=== PATIENT | female | born 1965 | race Hispanic/Latino ===

== ENCOUNTER 2023-06-13 09:23 | Emergency (ER) | payer OTHER ==
--- OUTSIDE RECORDS SUMMARY | 2023-06-13 09:28 | XMS REPORT | Continuity of Care Document ---
:1965 Author Organization [facility] t Address [address] [place] [address] Care Team Providers Name Role Phone Wendy Jones Attending Clinician Unavailable DORI CLEMENS Attending Clinician Unavailable Deepika HANNON, Mayela Grewal Attending Clinician Unavailable Malika HANNON, Lexi Attending Clinician Unavailable Gladis Newby Attending Clinician Payers Payer Name Policy Type Policy Number Effective Date Expiration Date Bucky primitivo FORMERLY [facility] [id number] 2015 HEALTH CHOICE 00:00:00 [place] [address] [id number] 2017 [facility] t Health Choice 00:00:00 - [facility] [place] [id number] 2017 [facility] t Health Choice 00:00:00 - [facility] [place] [id number] 2017 Common [facility] t Health Choice 00:00:[address] - [facility] [place] [id number] 2017 [facility] t [facility] Problems Condition Condition Condition Status Onset Resolution Last Treating Co mments Source Name Details Category Date Date Treatment Clinician Date Metabolic Metabolic Disease Active 2015-10 Uni vers syndrome syndrome 0-11 ity of 00:00: [place] 00 [facility] Branch ACC/AHA ACC/AHA Disease Active Univers stage A stage A 7 ity of heart heart 00:00: [place] failure failure 00 [facility] Dyslipidem Dyslipidem Disease Active U nivers ia ia 04-20 ity of 00:00: [place] 00 [facility] Atypical Atypical Disease Active Unive rs chest pain chest pain 04-20 it y of 00:00: [place] 00 [facility] Pyelonephr Pyelonephr Disease Active U nivers itis itis 2-08 ity of 00:00: [place] 00 [facility] [id number] Prediabete Problem Co mmon s [facility] Hyperglyce Hyperglyce Problem C ommon nazario nazario [facility] Acquired Acquired Problem Commo n hypothyroi hypothyroi Sp kenrick dism [facility] Anxiety Anxiety Problem Common [facility] Essential Benign Problem Common hypertensi essential Spi rit on HTN [facility] Incontinen Incontinen Problem C ommon ce ce [facility] Hyperlipid Hyperlipid Problem C ommon emia emia [facility] [id number] Vaginal Problem Commo n bleeding [facility] [id number] Controlled Problem Co mmon type 2 [facility] diabetes [facility] mellitus [facility] complicati Medica l on, Center without long-term current use of insulin [id number] Well adult Problem Co mmon exam [facility] [id number] History of Problem C ommon [id number] 2018 novel Spir it coronaviru [facility] s disease St (COVID-19[facility] [id number] Mixed Problem Common incontinen [facility] [id number] Type 2 Problem Common diabetes Spirit mellitus - [facility]I with 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 - CHI al menopause [facility] [id number] Viral Problem Common upper Spirit respirator - CHI y tract infection [facility] [id number] Gastroesop Problem Co mmon hageal Spirit reflux - CHI disease, esophagiti [facility] s presence Medica l not Center specified [id number] Non-season Problem Com mon al Spirit allergic - CHI rhinitis, unspecifie [facility] d [facility] Allergies, Adverse Reactions, Alerts Allergy Allergy Status Severity Reaction(s) Onset Inactive Treating Comm ents Source Name Type Date Date Clinician tramadol DA Active [place] [facility] 9-18 [facility] [place] PAPER DA Active [place] [facility] TAPE 18 [facility] [place] Tramadol Drug Active Other - See Pt stated Univers Intolera comments 11-23 she get ity o f nce 00:00: [facility] and [place] 00 diaphoret Medical ic. Branch TRAMADOL DRUG Active Med Other-Cmnt Univ ers INGREDI 11-23 ity of 00:00: [place] 00 Medical Branch Tramadol Tramadol Active Unknown Commo n Spirit - CH[facility] Social History Social Habit Start Date Stop Date Quantity Comments Source Exposure to Not sure [facility] SARS-CoV-2 (event) Medica l Branch History of Tobacco Common [facility] - [facility] Use [facility] Sex Assigned At Common Sp kenrick - [facility] Cigarettes smoked 2019-09-10 2019-09-10 [facility] current (pack per 00:00:00 00:00:00 Medical Branch day) - Reported Tobacco use and 2019-09-10 2019-09-10 Never used [facility] exposure 00:00:00 00:00:00 Medical Branch Smoking Status Start Date Stop Date Source Never Smoker [facility] - [facility] Former smoker 2019-09-10 00:00:00 2019-09-10 00:00:00 [facility] Medical Branch Medications Ordered Filled Start Stop Current Ordering Indication Dosage Frequency Signature Comments Components Source Medication Medication Date Date Medication? Clinician (SIG) Name Name ALPRAZolam ALPRAZolam 2021-10 No ALPRAZolam 0.25 MG 0.25 MG 2-16 0.25 MG 00:00: 00 ALPRAZolam ALPRAZolam 2021-10 No ALPRAZolam 0.25 MG 0.25 MG 2-16 0.25 MG 00:00: 00 Tradjenta 5 Tradjenta 5 2021-10 No 1{table QD Tradjenta MG MG 2-09 t} 5 MG 00:00: 00 Tradjenta 5 Tradjenta 5 2021-10 No 1{table QD Tradjenta MG MG 209 t} 5 MG 00:00: 00 Trulicity Trulicity 2021-10 No Trulicity 0.75mg/0.5m 0.75mg/0.5m 0-10 0.75mg/0.5 l l 00:00: ml 00 Trulicity Trulicity 2021-10 No Trulicity 0.75mg/0.5m 0.75mg/0.5m 0-10 0.75mg/0.5 l l 00:00: ml 00 Trulicity Trulicity 2021-10 No Trulicity 0.75mg/0.5m 0.75mg/0.5m 0-10 0.75mg/0.5 l l 00:00: ml 00 Glimepiride Glimepiride 2021-0 No 1{table Glimepirid 2 MG 2 MG 9-28 t} e 2 MG 00:00: 00 Glimepiride Glimepiride 2021-0 No 1{table Glimepirid 2 MG 2 MG 9-28 t} e 2 MG 00:00: 00 Glimepiride Glimepiride 2021-0 No 1{table Glimepirid 2 MG 2 MG 9-28 t} e 2 MG 00:00: 00 Glimepiride Glimepiride 2021-0 No 1{table Glimepirid 2 MG 2 MG 9-28 t} e 2 MG 00:00: 00 ALPRAZolam ALPRAZolam No ALPRAZolam 0.25 MG 0.25 MG -07 0.25 MG 00:00: 00 ALPRAZolam ALPRAZolam 2021-0 No ALPRAZolam 0.25 MG 0.25 MG 9-07 0.25 MG 00:00: 00 ALPRAZolam ALPRAZolam 2021-0 No ALPRAZolam 0.25 MG 0.25 MG 9-07 0.25 MG 00:00: 00 ALPRAZolam ALPRAZolam 2021-0 No ALPRAZolam 0.25 MG 0.25 MG 4-26 0.25 MG 00:00: 00 ALPRAZolam ALPRAZolam 2021-0 No ALPRAZolam 0.25 MG 0.25 MG 4-26 0.25 MG 00:00: 00 ALPRAZolam ALPRAZolam 2021-0 No ALPRAZolam 0.25 MG 0.25 MG 1-20 0.25 MG 00:00: 00 ALPRAZolam ALPRAZolam 2021-0 No ALPRAZolam 0.25 MG 0.25 MG 1-20 0.25 MG 00:00: 00 Xanax 0.25 Xanax 0.25 2020-1 No 1{table BID Xanax 0.25 MG MG 1-03 t} MG 00:00: 00 Xanax 0.25 Xanax 0.25 2020-1 No 1{table BID Xanax 0.25 MG MG 1-03 t} MG 00:00: 00 Xanax 0.25 Xanax 0.25 2020-1 No 1{table BID Xanax 0.25 MG MG 1-03 t} MG 00:00: 00 ALPRAZolam ALPRAZolam 2020-0 No ALPRAZolam 0.25 MG 0.25 MG 9-13 0.25 MG 00:00: 00 ALPRAZolam ALPRAZolam 2020-0 No ALPRAZolam 0.25 MG 0.25 MG 9-13 0.25 MG 00:00: 00 ALPRAZolam ALPRAZolam 2020-0 No ALPRAZolam 0.25 MG 0.25 MG 9-13 0.25 MG 00:00: 00 ALPRAZolam ALPRAZolam 2020-0 No ALPRAZolam 0.25 MG 0.25 MG 9-13 0.25 MG 00:00: 00 Glimepiride Glimepiride 2021-0 No 1{table Glimepirid 1 MG 1 MG 7-21 t} e 1 MG 00:00: 00 Glimepiride Glimepiride 2020-0 No 1{table Glimepirid 1 MG 1 MG 7-21 t} e 1 MG 00:00: 00 Glimepiride Glimepiride 2020-0 No 1{table Glimepirid 1 MG 1 MG 7-21 t} e 1 MG 00:00: 00 Glimepiride Glimepiride 2020-0 No 1{table Glimepirid 1 MG 1 MG 7-21 t} e 1 MG 00:00: 00 Glimepiride Glimepiride 2020-0 No 1{table Glimepirid 1 MG 1 MG 7-21 t} e 1 MG 00:00: 00 Albuterol Albuterol No 2{puffs Albuterol Sulfate HFA Sulfate HFA 6-03 } Sulfate 108 (90 108 (90 00:00: HFA 108 Base) Base) 00 (90 Base) MCG/ACT MCG/ACT MCG/ACT Albuterol Albuterol No 2{puffs Albuterol Sulfate HFA Sulfate HFA 6-03 } Sulfate 108 (90 108 (90 00:00: HFA 108 Base) Base) 00 (90 Base) MCG/ACT MCG/ACT MCG/ACT Albuterol Albuterol No 2{puffs Albuterol Sulfate HFA Sulfate HFA 6-03 } Sulfate 108 (90 108 (90 00:00: HFA 108 Base) Base) 00 (90 Base) MCG/ACT MCG/ACT MCG/ACT Albuterol Albuterol No 2{puffs Albuterol Sulfate HFA Sulfate HFA 6-03 } Sulfate 108 (90 108 (90 00:00: HFA 108 Base) Base) 00 (90 Base) MCG/ACT MCG/ACT MCG/ACT Albuterol Albuterol 2020- No 2{puffs Albuterol Sulfate HFA Sulfate HFA 6-03 } Sulfate 108 (90 108 (90 00:00: HFA 108 Base) Base) 00 (90 Base) MCG/ACT MCG/ACT MCG/ACT Albuterol Albuterol No 2{puffs Albuterol Sulfate HFA Sulfate HFA 6-03 } Sulfate 108 (90 108 (90 00:00: HFA 108 Base) Base) 00 (90 Base) MCG/ACT MCG/ACT MCG/ACT Albuterol Albuterol 0 No 2{puffs Albuterol Sulfate HFA Sulfate HFA 6-03 } Sulfate 108 (90 108 (90 00:00: HFA 108 Base) Base) 00 (90 Base) MCG/ACT MCG/ACT MCG/ACT Albuterol Albuterol No 2{puffs Albuterol Sulfate HFA Sulfate HFA 6-03 } Sulfate 108 (90 108 (90 00:00: HFA 108 Base) Base) 00 (90 Base) MCG/ACT MCG/ACT MCG/ACT Albuterol Albuterol No 2{puffs Albuterol Sulfate HFA Sulfate HFA 6-03 } Sulfate 108 (90 108 (90 00:00: HFA 108 Base) Base) 00 (90 Base) MCG/ACT MCG/ACT MCG/ACT Albuterol Albuterol 0 No 2{puffs Albuterol Sulfate HFA Sulfate HFA 6-03 } Sulfate 108 (90 108 (90 00:00: HFA 108 Base) Base) 00 (90 Base) MCG/ACT MCG/ACT MCG/ACT Albuterol Albuterol 0 No 2{puffs Albuterol Sulfate HFA Sulfate HFA 6-03 } Sulfate 108 (90 108 (90 00:00: HFA 108 Base) Base) 00 (90 Base) MCG/ACT MCG/ACT MCG/ACT Albuterol Albuterol 0 No 2{puffs Albuterol Sulfate HFA Sulfate HFA 6-03 } Sulfate 108 (90 108 (90 00:00: HFA 108 Base) Base) 00 (90 Base) MCG/ACT MCG/ACT MCG/ACT Albuterol Albuterol 0 No 2{puffs Albuterol Sulfate HFA Sulfate HFA 6-03 } Sulfate 108 (90 108 (90 00:00: HFA 108 Base) Base) 00 (90 Base) MCG/ACT MCG/ACT MCG/ACT naproxen 2019-10- No 500mg 500 mg, Univ ers (NAPROSYN) 0-27 10-27 Oral, ity of tablet 500 20:30: 19:32 ONCE, 1 Juan Luis as mg 00 :00 dose, [facility] 08/10/20 Branch at 1530, Routine naproxen 2019-10 Yes [id number] 500mg Take 1 U nivers (NAPROSYN) 0-27 tablet by ity of 500 mg 00:00: mouth 2 [place] tablet 00 (two) Medical times Branch daily with meals. ondansetron 2019-10 Yes [id number] 4mg Take 1 Univers (ZOFRAN 0-27 tablet by ity of ODT) 4 mg 00:00: mouth [place] disintegrat 00 every 8 Medic al ing tablet (eight) Branch hours as needed for Nausea and Vomiting (N/V). benzonatate 2019-10 Yes [id number] 200mg Take 1 Univers 200 mg 0-27 capsule by ity of capsule 00:00: mouth 3 [place] (three) Medical times Branch daily as needed for Cough for up to 20 doses. naproxen 2019-10 Yes [id number] 500mg Take 1 U nivers (NAPROSYN) 0-27 tablet by ity of 500 mg 00:00: mouth 2 [place] tablet 00 (two) Medical times Branch daily with meals. ondansetron 2019-10 Yes [id number] 4mg Take 1 Univers (ZOFRAN 0-27 tablet by ity of ODT) 4 mg 00:00: mouth [place] disintegrat 00 every 8 Medic al ing tablet (eight) Branch hours as needed for Nausea and Vomiting (N/V). benzonatate 2019-10 Yes [id number] 200mg Take 1 Univers 200 mg 0-27 capsule by ity of capsule 00:00: mouth 3 (three) Medical times Branch daily as needed for Cough for up to 20 doses. Nateglinide Nateglinide 2019-0 Yes Na Jones 1 tablet Common 7-17 before Spirit 00:00: meals - CHI 00 [facility] Glimepiride Glimepiride 2020-0 Yes Na Jones 1 tablet Common 6-08 with Spirit 00:00: breakfast - [facility] or [facility] meal of [facility] the day [place] ALPRAZolam 2018-10 Yes .25mg Take 0.25 U nivers (XANAX) 2 1-27 mg by ity of mg tablet 20:54: mouth 2 [place] (two) Medical times Branch daily. losartan 2018-10 Yes 50mg Take 50 mg Uni vers (COZAAR) 50 1-27 by mouth ity of mg tablet 20:54: daily. Medical Branch metFORMIN 2018-10 Yes 500mg Take 500 Uni vers 500 mg 1-27 mg by ity of tablet 20:54: mouth 2 (two) Medical times Branch daily with meals. levothyroxi 2018-10 Yes 50ug Take 50 Uni vers ne 50 mcg 1-27 mcg by ity of tablet 20:54: mouth [place] 00 every Medical morning. Branch estradiol 2018-10 Yes [id number] estradiol Univers 0.01 % (0.1 1-27 0.01% (0.1 it y of mg/gram) 20:54: mg/gram) vaginal vaginal Medical cream cream Branch Insert by vaginal route. oxybutynin 2018-10 Yes oxybutynin U nivers 10 mg 24 hr 1-27 chloride ity of tablet 20:54: ER 10 mg tablet,ext Medical ended Branch release 24 hr TAKE 1 TABLET BY MOUTH ONCE DAILY FOR 30 DAYS atorvastati 2018-10 Yes 20mg Take 20 mg Univers n 20 mg 1-27 by mouth ity of tablet 20:54: at [place] 00 bedtime. Medical Branch ALPRAZolam 2018-10 Yes .25mg Take 0.25 U nivers (XANAX) 2 1-27 mg by ity of mg tablet 20:54: mouth 2 (two) Medical times Branch daily. losartan 2018-10 Yes 50mg Take 50 mg Uni vers (COZAAR) 50 1-27 by mouth ity of mg tablet 20:54: daily. [place] Medical Branch metFORMIN 2018-10 Yes 500mg Take 500 Uni vers 500 mg 1-27 mg by ity of tablet 20:54: mouth 2 (two) Medical times Branch daily with meals. levothyroxi 2018-10 Yes 50ug Take 50 Uni vers ne 50 mcg 1-27 mcg by ity of tablet 20:54: mouth [place] 00 every Medical morning. Branch estradiol 2018-10 Yes [id number] estradiol Univers 0.01 % (0.1 1-27 0.01% (0.1 it y of mg/gram) 20:54: mg/gram) vaginal 00 vaginal Medical cream cream Branch Insert by vaginal route. oxybutynin 2018-10 Yes oxybutynin U nivers 10 mg 24 hr 1-27 chloride ity of tablet 20:54: ER 10 mg tablet,ext Medical ended Branch release 24 hr TAKE 1 TABLET BY MOUTH ONCE DAILY FOR 30 DAYS atorvastati 2018-10 Yes 20mg Take 20 mg Univers n 20 mg 27 by mouth ity of tablet 20:54: at [place] 00 bedtime. Medical Branch cetirizine 2018-10 Yes TAKE 1 Unive rs 10 mg 0-03 TABLET BY ity of tablet 00:00: MOUTH ONCE [place] 00 DAILY FOR Medical 90 DAYS Branch cetirizine 2018-10 Yes TAKE 1 Unive rs 10 mg 0-03 TABLET BY ity of tablet 00:00: MOUTH ONCE [place] 00 DAILY FOR Medical 90 DAYS Branch Flonase Flonase 2018-10 Yes Na Robert 2 spray in Common 0-03 each Spirit 00:00: nostril - [facility] Kenalog Kenalog 2018-10 No 40mg Common (Triamcinol (Triamcinol 0-03 S pirit one) one) 00:00: - CH[facility] Flonase 50 Flonase 50 2018-10 No 2{spray QD Flonase 50 MCG/ACT MCG/ACT 0-03 _in_eac MCG/ACT 00:00: h_nostr 00 il} Flonase 50 Flonase 50 2018-10 No 2{spray QD Flonase 50 MCG/ACT MCG/ACT 0-03 _in_eac MCG/ACT 00:00: h_nostr 00 il} Flonase 50 Flonase 50 2018-10 No 2{spray QD Flonase 50 MCG/ACT MCG/ACT 0-03 _in_eac MCG/ACT 00:00: h_nostr 00 il} Flonase 50 Flonase 50 2018-10 No 2{spray QD Flonase 50 MCG/ACT MCG/ACT 0-03 _in_eac MCG/ACT 00:00: h_nostr 00 il} Flonase 50 Flonase 50 2018-10 No 2{spray QD Flonase 50 MCG/ACT MCG/ACT 0-03 _in_eac MCG/ACT 00:00: h_nostr 00 il} Flonase 50 Flonase 50 2018-10 No 2{spray QD Flonase 50 MCG/ACT MCG/ACT 0-03 _in_eac MCG/ACT 00:00: h_nostr 00 il} Kenalog Kenalog 2019- No 40mg Common (Triamcinol (Triamcinol 0-03 S pirit one) one) 00:00: - CHI 00 [facility] Flonase 50 Flonase 50 2018- No 2{spray QD Flonase 50 MCG/ACT MCG/ACT 0-03 _in_eac MCG/ACT 00:00: h_nostr 00 il} Kenalog Kenalog 2018- No 40mg Common (Triamcinol (Triamcinol 0-03 S pirit one) one) 00:00: - CHI 00 [facility] Flonase 50 Flonase 50 2018- No 2{spray QD Flonase 50 MCG/ACT MCG/ACT 0-03 _in_eac MCG/ACT 00:00: h_nostr 00 il} Kenalog Kenalog 2018- No 40mg Common (Triamcinol (Triamcinol 0-03 S pirit one) one) 00:00: - [facility] Flonase 50 Flonase 50 2018- No 2{spray QD Flonase 50 MCG/ACT MCG/ACT 0-03 _in_eac MCG/ACT 00:00: h_nostr 00 il} Kenalog Kenalog 2018- No 40mg Common (Triamcinol (Triamcinol 0-03 S pirit one) one) 00:00: - CHI 00 [facility] Flonase 50 Flonase 50 2018- No 2{spray QD Flonase 50 MCG/ACT MCG/ACT 0-03 _in_eac MCG/ACT 00:00: h_nostr 00 il} Kenalog Kenalog 2018- No 40mg Common (Triamcinol (Triamcinol 0-03 S pirit one) one) 00:00: - CHI 00 [facility] Flonase 50 Flonase 50 2019- No 2{spray QD Flonase 50 MCG/ACT MCG/ACT 0-03 _in_eac MCG/ACT 00:00: h_nostr 00 il} Kenalog Kenalog 2019- No 40mg Common (Triamcinol (Triamcinol 0-03 S pirit one) one) 00:00: - CHI 00 [facility] Flonase 50 Flonase 50 2018-10 No 2{spray QD Flonase 50 MCG/ACT MCG/ACT 0-03 _in_eac MCG/ACT 00:00: h_nostr 00 il} Kenalog Kenalog 2018-10 No 40mg Common (Triamcinol (Triamcinol 0-03 S pirit one) one) 00:00: - CHI 00 [facility] Flonase 50 Flonase 50 2018-10 No 2{spray QD Flonase 50 MCG/ACT MCG/ACT 0-03 _in_eac MCG/ACT 00:00: h_nostr 00 il} Xanax Xanax Yes Na Jones 1 tablet Common [facility] Atorvastati Atorvastati Yes Na Jones 1 tablet Common n Calcium n Calcium Spiri [facility] Cozaar Cozaar Yes Na Jones 1 tablet Comm on [facility] Oxybutynin Oxybutynin Yes Na Jones 1 tablet Common Chloride ER Chloride ER S [facility] Levothyroxi Levothyroxi Yes Na Jones 1 tablet Common ne Sodium ne Sodium on an Spir it empty - CHI stomach in [facility] Metformin Metformin Yes Na Jones 1 tablet Common HCl HCl with a Spirit meal [facility] Atorvastati Atorvastati Yes Na Jones 1 tablet Common n Calcium n Calcium Spiri [facility] Levothyroxi Levothyroxi Yes Na Jones 1 tablet Common ne Sodium ne Sodium on an Spir it empty - CHI stomach in [facility] Losartan Losartan Yes Na Jones Take 1 Co mmon Potassium Potassium tablet by Spirit mouth once - CHI daily for days [facility] Levothyroxi Levothyroxi No QD Levothyrox ne Sodium ne Sodium ine Sodium 50 MCG 50 MCG 50 MCG Albuterol Albuterol No 2{puffs Albuterol Sulfate HFA Sulfate HFA } Sulfate 108 (90 108 (90 HFA 108 Base) Base) (90 Base) MCG/ACT MCG/ACT MCG/ACT Xanax 0.25 Xanax 0.25 No 1{table BID Xanax 0.25 MG MG t} MG Cozaar 50 Cozaar 50 No 1{table QD Cozaar 50 MG MG t} MG Albuterol Albuterol No 2{puffs Albuterol Sulfate HFA Sulfate HFA } Sulfate 108 (90 108 (90 HFA 108 Base) Base) (90 Base) MCG/ACT MCG/ACT MCG/ACT Oxybutynin Oxybutynin No 1{table QD Oxybutynin Chloride ER Chloride ER t} Chloride 10 MG 10 MG ER 10 MG Atorvastati Atorvastati No 1{table QD Atorvastat n Calcium n Calcium t} in Calcium 40 MG 40 MG 40 MG metFORMIN metFORMIN No metFORMIN HCl 500 MG HCl 500 MG HCl 500 MG Atorvastati Atorvastati No 1{table QD Atorvastat n Calcium n Calcium t} in Calcium 20 MG 20 MG 20 MG Levothyroxi Levothyroxi No QD Levothyrox ne Sodium ne Sodium ine Sodium 50 MCG 50 MCG 50 MCG Losartan Losartan No QD Losartan Potassium Potassium Potassium 50 MG 50 MG 50 MG Oxybutynin Oxybutynin No 1{table QD Oxybutynin Chloride ER Chloride ER t} Chloride 10 MG 10 MG ER 10 MG Albuterol Albuterol No 2{puffs Albuterol Sulfate HFA Sulfate HFA } Sulfate 108 (90 108 (90 HFA 108 Base) Base) (90 Base) MCG/ACT MCG/ACT MCG/ACT Atorvastati Atorvastati No 1{table QD Atorvastat n Calcium n Calcium t} in Calcium 40 MG 40 MG 40 MG metFORMIN metFORMIN No metFORMIN HCl 500 MG HCl 500 MG HCl 500 MG Cozaar 50 Cozaar 50 No 1{table QD Cozaar 50 MG MG t} MG Losartan Losartan No QD Losartan Potassium Potassium Potassium 50 MG 50 MG 50 MG Levothyroxi Levothyroxi No QD Levothyrox ne Sodium ne Sodium ine Sodium 50 MCG 50 MCG 50 MCG Atorvastati Atorvastati No 1{table QD Atorvastat n Calcium n Calcium t} in Calcium 20 MG 20 MG 20 MG Oxybutynin Oxybutynin No 1{table QD Oxybutynin Chloride ER Chloride ER t} Chloride 10 MG 10 MG ER 10 MG Albuterol Albuterol No 2{puffs Albuterol Sulfate HFA Sulfate HFA } Sulfate 108 (90 108 (90 HFA 108 Base) Base) (90 Base) MCG/ACT MCG/ACT MCG/ACT Atorvastati Atorvastati No 1{table QD Atorvastat n Calcium n Calcium t} in Calcium 40 MG 40 MG 40 MG metFORMIN metFORMIN No metFORMIN HCl 500 MG HCl 500 MG HCl 500 MG Cozaar 50 Cozaar 50 No 1{table QD Cozaar 50 MG MG t} MG Losartan Losartan No QD Losartan Potassium Potassium Potassium 50 MG 50 MG 50 MG Levothyroxi Levothyroxi No QD Levothyrox ne Sodium ne Sodium ine Sodium 50 MCG 50 MCG 50 MCG Atorvastati Atorvastati No 1{table QD Atorvastat n Calcium n Calcium t} in Calcium 20 MG 20 MG 20 MG Oxybutynin Oxybutynin No 1{table QD Oxybutynin Chloride ER Chloride ER t} Chloride 10 MG 10 MG ER 10 MG Albuterol Albuterol No 2{puffs Albuterol Sulfate HFA Sulfate HFA } Sulfate 108 (90 108 (90 HFA 108 Base) Base) (90 Base) MCG/ACT MCG/ACT MCG/ACT Atorvastati Atorvastati No 1{table QD Atorvastat n Calcium n Calcium t} in Calcium 40 MG 40 MG 40 MG metFORMIN metFORMIN No metFORMIN HCl 500 MG HCl 500 MG HCl 500 MG Cozaar 50 Cozaar 50 No 1{table QD Cozaar 50 MG MG t} MG Losartan Losartan No QD Losartan Potassium Potassium Potassium 50 MG 50 MG 50 MG Levothyroxi Levothyroxi No QD Levothyrox ne Sodium ne Sodium ine Sodium 50 MCG 50 MCG 50 MCG Atorvastati Atorvastati No 1{table QD Atorvastat n Calcium n Calcium t} in Calcium 20 MG 20 MG 20 MG Losartan Losartan No QD Losartan Potassium Potassium Potassium 50 MG 50 MG 50 MG Levothyroxi Levothyroxi No QD Levothyrox ne Sodium ne Sodium ine Sodium 50 MCG 50 MCG 50 MCG Cozaar 50 Cozaar 50 No 1{table QD Cozaar 50 MG MG t} MG Atorvastati Atorvastati No 1{table QD Atorvastat n Calcium n Calcium t} in Calcium 20 MG 20 MG 20 MG Albuterol Albuterol No 2{puffs Albuterol Sulfate HFA Sulfate HFA } Sulfate 108 (90 108 (90 HFA 108 Base) Base) (90 Base) MCG/ACT MCG/ACT MCG/ACT Atorvastati Atorvastati No Atorvastat n Calcium n Calcium in Calcium 40 MG 40 MG 40 MG Oxybutynin Oxybutynin No 1{table QD Oxybutynin Chloride ER Chloride ER t} Chloride 10 MG 10 MG ER 10 MG metFORMIN metFORMIN No BID metFORMIN HCl 500 MG HCl 500 MG HCl 500 MG Xanax 0.25 Xanax 0.25 No 1{table BID Xanax 0.25 MG MG t} MG Atorvastati Atorvastati No 1{table QD Atorvastat n Calcium n Calcium t} in Calcium 20 MG 20 MG 20 MG Albuterol Albuterol No 2{puffs Albuterol Sulfate HFA Sulfate HFA } Sulfate 108 (90 108 (90 HFA 108 Base) Base) (90 Base) MCG/ACT MCG/ACT MCG/ACT Glimepiride Glimepiride No 1{table Glimepirid 1 MG 1 MG t} e 1 MG metFORMIN metFORMIN No 1{table BID metFORMIN HCl 500 MG HCl 500 MG t_with_ HCl 500 MG a_meal} Levothyroxi Levothyroxi No QD Levothyrox ne Sodium ne Sodium ine Sodium 50 MCG 50 MCG 50 MCG Cozaar 50 Cozaar 50 No 1{table QD Cozaar 50 MG MG t} MG metFORMIN metFORMIN No BID metFORMIN HCl 500 MG HCl 500 MG HCl 500 MG Losartan Losartan No QD Losartan Potassium Potassium Potassium 50 MG 50 MG 50 MG Oxybutynin Oxybutynin No 1{table QD Oxybutynin Chloride ER Chloride ER t} Chloride 10 MG 10 MG ER 10 MG Atorvastati Atorvastati No Atorvastat n Calcium n Calcium in Calcium 40 MG 40 MG 40 MG metFORMIN metFORMIN No QD metFORMIN HCl ER 500 HCl ER 500 HCl ER 500 MG MG MG metFORMIN metFORMIN No 1{table BID metFORMIN HCl 500 MG HCl 500 MG t_with_ HCl 500 MG a_meal} Levothyroxi Levothyroxi No QD Levothyrox ne Sodium ne Sodium ine Sodium 50 MCG 50 MCG 50 MCG Glimepiride Glimepiride No 1{table Glimepirid 1 MG 1 MG t} e 1 MG Atorvastati Atorvastati No Atorvastat n Calcium n Calcium in Calcium 40 MG 40 MG 40 MG Oxybutynin Oxybutynin No 1{table QD Oxybutynin Chloride ER Chloride ER t} Chloride 10 MG 10 MG ER 10 MG Cozaar 50 Cozaar 50 No 1{table QD Cozaar 50 MG MG t} MG metFORMIN metFORMIN No BID metFORMIN HCl 500 MG HCl 500 MG HCl 500 MG Albuterol Albuterol No 2{puffs Albuterol Sulfate HFA Sulfate HFA } Sulfate 108 (90 108 (90 HFA 108 Base) Base) (90 Base) MCG/ACT MCG/ACT MCG/ACT Losartan Losartan No QD Losartan Potassium Potassium Potassium 50 MG 50 MG 50 MG Xanax 0.25 Xanax 0.25 No 1{table BID Xanax 0.25 MG MG t} MG Atorvastati Atorvastati No 1{table QD Atorvastat n Calcium n Calcium t} in Calcium 20 MG 20 MG 20 MG metFORMIN metFORMIN No QD metFORMIN HCl ER 500 HCl ER 500 HCl ER 500 MG MG MG metFORMIN metFORMIN No 1{table BID metFORMIN HCl 500 MG HCl 500 MG t_with_ HCl 500 MG a_meal} Levothyroxi Levothyroxi No QD Levothyrox ne Sodium ne Sodium ine Sodium 50 MCG 50 MCG 50 MCG Glimepiride Glimepiride No 1{table Glimepirid 1 MG 1 MG t} e 1 MG Atorvastati Atorvastati No Atorvastat n Calcium n Calcium in Calcium 40 MG 40 MG 40 MG Oxybutynin Oxybutynin No 1{table QD Oxybutynin Chloride ER Chloride ER t} Chloride 10 MG 10 MG ER 10 MG Cozaar 50 Cozaar 50 No 1{table QD Cozaar 50 MG MG t} MG metFORMIN metFORMIN No BID metFORMIN HCl 500 MG HCl 500 MG HCl 500 MG Albuterol Albuterol No 2{puffs Albuterol Sulfate HFA Sulfate HFA } Sulfate 108 (90 108 (90 HFA 108 Base) Base) (90 Base) MCG/ACT MCG/ACT MCG/ACT Losartan Losartan No QD Losartan Potassium Potassium Potassium 50 MG 50 MG 50 MG Xanax 0.25 Xanax 0.25 No 1{table BID Xanax 0.25 MG MG t} MG Atorvastati Atorvastati No 1{table QD Atorvastat n Calcium n Calcium t} in Calcium 20 MG 20 MG 20 MG metFORMIN metFORMIN No metFORMIN HCl ER 500 HCl ER 500 HCl ER 500 MG MG MG Atorvastati Atorvastati No 1{table QD Atorvastat n Calcium n Calcium t} in Calcium 20 MG 20 MG 20 MG metFORMIN metFORMIN No QD metFORMIN HCl ER 500 HCl ER 500 HCl ER 500 MG MG MG Xanax 0.25 Xanax 0.25 No 1{table BID Xanax 0.25 MG MG t} MG Atorvastati Atorvastati No Atorvastat n Calcium n Calcium in Calcium 40 MG 40 MG 40 MG Losartan Losartan No QD Losartan Potassium Potassium Potassium 50 MG 50 MG 50 MG Losartan Losartan No Losartan Potassium Potassium Potassium 50 MG 50 MG 50 MG metFORMIN metFORMIN No 1{table BID metFORMIN HCl 500 MG HCl 500 MG t_with_ HCl 500 MG a_meal} Cozaar 50 Cozaar 50 No 1{table QD Cozaar 50 MG MG t} MG metFORMIN metFORMIN No BID metFORMIN HCl 500 MG HCl 500 MG HCl 500 MG Levothyroxi Levothyroxi No Levothyrox ne Sodium ne Sodium ine Sodium 50 MCG 50 MCG 50 MCG Oxybutynin Oxybutynin No 1{table QD Oxybutynin Chloride ER Chloride ER t} Chloride 10 MG 10 MG ER 10 MG Levothyroxi Levothyroxi No QD Levothyrox ne Sodium ne Sodium ine Sodium 50 MCG 50 MCG 50 MCG Albuterol Albuterol No 2{puffs Albuterol Sulfate HFA Sulfate HFA } Sulfate 108 (90 108 (90 HFA 108 Base) Base) (90 Base) MCG/ACT MCG/ACT MCG/ACT Losartan Losartan No QD Losartan Potassium Potassium Potassium 50 MG 50 MG 50 MG Xanax 0.25 Xanax 0.25 No 1{table BID Xanax 0.25 MG MG t} MG Levothyroxi Levothyroxi No QD Levothyrox ne Sodium ne Sodium ine Sodium 50 MCG 50 MCG 50 MCG metFORMIN metFORMIN No metFORMIN HCl ER 500 HCl ER 500 HCl ER 500 MG MG MG Oxybutynin Oxybutynin No 1{table QD Oxybutynin Chloride ER Chloride ER t} Chloride 10 MG 10 MG ER 10 MG metFORMIN metFORMIN No QD metFORMIN HCl ER 500 HCl ER 500 HCl ER 500 MG MG MG metFORMIN metFORMIN No BID metFORMIN HCl 500 MG HCl 500 MG HCl 500 MG Losartan Losartan No Losartan Potassium Potassium Potassium 50 MG 50 MG 50 MG Atorvastati Atorvastati No 1{table QD Atorvastat n Calcium n Calcium t} in Calcium 20 MG 20 MG 20 MG metFORMIN metFORMIN No 1{table BID metFORMIN HCl 500 MG HCl 500 MG t_with_ HCl 500 MG a_meal} Albuterol Albuterol No 2{puffs Albuterol Sulfate HFA Sulfate HFA } Sulfate 108 (90 108 (90 HFA 108 Base) Base) (90 Base) MCG/ACT MCG/ACT MCG/ACT Levothyroxi Levothyroxi No Levothyrox ne Sodium ne Sodium ine Sodium 50 MCG 50 MCG 50 MCG Atorvastati Atorvastati No Atorvastat n Calcium n Calcium in Calcium 40 MG 40 MG 40 MG Cozaar 50 Cozaar 50 No 1{table QD Cozaar 50 MG MG t} MG metFORMIN metFORMIN No metFORMIN HCl ER 500 HCl ER 500 HCl ER 500 MG MG MG Losartan Losartan No Losartan Potassium Potassium Potassium 50 MG 50 MG 50 MG metFORMIN metFORMIN No BID metFORMIN HCl 500 MG HCl 500 MG HCl 500 MG Levothyroxi Levothyroxi No Levothyrox ne Sodium ne Sodium ine Sodium 50 MCG 50 MCG 50 MCG metFORMIN metFORMIN No 1{table BID metFORMIN HCl 500 MG HCl 500 MG t_with_ HCl 500 MG a_meal} Oxybutynin Oxybutynin No 1{table QD Oxybutynin Chloride ER Chloride ER t} Chloride 10 MG 10 MG ER 10 MG Atorvastati Atorvastati No Atorvastat n Calcium n Calcium in Calcium 40 MG 40 MG 40 MG Xanax 0.25 Xanax 0.25 No 1{table BID Xanax 0.25 MG MG t} MG Atorvastati Atorvastati No 1{table QD Atorvastat n Calcium n Calcium t} in Calcium 20 MG 20 MG 20 MG Cozaar 50 Cozaar 50 No 1{table QD Cozaar 50 MG MG t} MG Albuterol Albuterol No 2{puffs Albuterol Sulfate HFA Sulfate HFA } Sulfate 108 (90 108 (90 HFA 108 Base) Base) (90 Base) MCG/ACT MCG/ACT MCG/ACT metFORMIN metFORMIN No metFORMIN HCl ER 500 HCl ER 500 HCl ER 500 MG MG MG Oxybutynin Oxybutynin No 1{table QD Oxybutynin Chloride ER Chloride ER t} Chloride 10 MG 10 MG ER 10 MG metFORMIN metFORMIN No 1{table BID metFORMIN HCl 500 MG HCl 500 MG t_with_ HCl 500 MG a_meal} Levothyroxi Levothyroxi No QD Levothyrox ne Sodium ne Sodium ine Sodium 50 MCG 50 MCG 50 MCG metFORMIN metFORMIN No QD metFORMIN HCl ER 500 HCl ER 500 HCl ER 500 MG MG MG Albuterol Albuterol No 2{puffs Albuterol Sulfate HFA Sulfate HFA } Sulfate 108 (90 108 (90 HFA 108 Base) Base) (90 Base) MCG/ACT MCG/ACT MCG/ACT Levothyroxi Levothyroxi No Levothyrox ne Sodium ne Sodium ine Sodium 50 MCG 50 MCG 50 MCG Losartan Losartan No QD Losartan Potassium Potassium Potassium 50 MG 50 MG 50 MG Atorvastati Atorvastati No 1{table QD Atorvastat n Calcium n Calcium t} in Calcium 20 MG 20 MG 20 MG Losartan Losartan No Losartan Potassium Potassium Potassium 50 MG 50 MG 50 MG Glimepiride Glimepiride No 1{table Glimepirid 2 MG 2 MG t} e 2 MG Atorvastati Atorvastati No Atorvastat n Calcium n Calcium in Calcium 40 MG 40 MG 40 MG Trulicity Trulicity No Trulicity 1.5mg/0.5ml 1.5mg/0.5ml 1.5mg/0.5m l metFORMIN metFORMIN No BID metFORMIN HCl 500 MG HCl 500 MG HCl 500 MG Cozaar 50 Cozaar 50 No 1{table QD Cozaar 50 MG MG t} MG Xanax 0.25 Xanax 0.25 No 1{table BID Xanax 0.25 MG MG t} MG metFORMIN metFORMIN No metFORMIN HCl ER 500 HCl ER 500 HCl ER 500 MG MG MG Atorvastati Atorvastati No 1{table QD Atorvastat n Calcium n Calcium t} in Calcium 20 MG 20 MG 20 MG metFORMIN metFORMIN No QD metFORMIN HCl ER 500 HCl ER 500 HCl ER 500 MG MG MG Xanax 0.25 Xanax 0.25 No 1{table BID Xanax 0.25 MG MG t} MG Atorvastati Atorvastati No Atorvastat n Calcium n Calcium in Calcium 40 MG 40 MG 40 MG Losartan Losartan No QD Losartan Potassium Potassium Potassium 50 MG 50 MG 50 MG Losartan Losartan No Losartan Potassium Potassium Potassium 50 MG 50 MG 50 MG metFORMIN metFORMIN No 1{table BID metFORMIN HCl 500 MG HCl 500 MG t_with_ HCl 500 MG a_meal} Cozaar 50 Cozaar 50 No 1{table QD Cozaar 50 MG MG t} MG metFORMIN metFORMIN No BID metFORMIN HCl 500 MG HCl 500 MG HCl 500 MG Levothyroxi Levothyroxi No Levothyrox ne Sodium ne Sodium ine Sodium 50 MCG 50 MCG 50 MCG Oxybutynin Oxybutynin No 1{table QD Oxybutynin Chloride ER Chloride ER t} Chloride 10 MG 10 MG ER 10 MG Immunizations Ordered Immunization Filled Immunization Date Status Commen ts Source Name Name Afluria Afluria 2021-08-09 [facility] Afluria Afluria 2021-08-09 [facility]00 [facility] Afluria Afluria 2021-08-09 [facility]pleted [facility] 17:12:00 [facility] Afluria Afluria 2021-08-09 [facility]pleted [facility] 17:12:00 [facility] Afluria Afluria 2021-08-09 [facility]pleted [facility] 17:12:00 [facility] Afluria Afluria 2021-08-09 [facility]pleted [facility] 17:12:00 [facility] Afluria Afluria 2021-08-09 [facility]pleted [facility] 17:12:00 [facility] Afluria Afluria 2021-08-09 Completed [facility] 17:12:00 - [facility] Afluria Afluria 2021-08-09 Completed [facility] 17:12:00 [facility] Afluria Afluria 2021-08-09 Completed [facility] 17:12:00 [facility] Afluria Afluria 2021-08-09 Completed [facility] 17:12:00 [facility] Afluria Afluria 2021-08-09 [facility]pleted [facility] 17:12:00 [facility] Afluria Afluria 2021-08-09 [facility]pleted [facility] 17:12:00 [facility] Moderna COVID-19 Moderna COVID-19 2021-04-22 [facility] 15:11:00 [facility] Moderna COVID-19 Moderna COVID-19 2021-04-22 [facility] 15:11:00 [facility] Moderna COVID-19 Moderna COVID-19 2021-04-22 Com[facility] 15:11:00 - [facility] Moderna COVID-19 Moderna COVID-19 2021-04-22 Com[facility] 15:11:00 - [facility] Moderna COVID-19 Moderna COVID-19 2021-04-22 Com[facility] 15:11:00 [facility] Moderna COVID-19 Moderna COVID-19 2021-04-22 Com[facility] 15:11:00 - [facility] Moderna COVID-19 Moderna COVID-19 2021-04-22 Com[facility] 15:11:00 [facility] Moderna COVID-19 Moderna COVID-19 2021-04-22 Com[facility] 15:11:00 - [facility] Moderna COVID-19 Moderna COVID-19 2021-04-22 Com[facility] 15:11:00 - [facility] Moderna COVID-19 Moderna COVID-19 2021-04-22 Com[facility] 15:11:00 - [facility] Moderna COVID-19 Moderna COVID-19 2021-04-22 Com[facility] 15:11:00 [facility] Moderna COVID-19 Moderna COVID-19 2021-04-22 Com[facility] 15:11:00 [facility] Moderna COVID-19 Moderna COVID-19 2021-04-22 Com[facility] 15:11:00 - [facility] Afluria single dose Afluria single dose 2020-07-15 Completed [facility] 15:38:00 [facility] Afluria single dose Afluria single dose 2020-07-15 Completed [facility] 15:38:00 [facility] Afluria single dose Afluria single dose 2020-07-15 Completed [facility] 15:38:00 [facility] Afluria single dose Afluria single dose 2020-07-15 Completed [facility] 15:38:00 - [facility] Afluria single dose Afluria single dose 2020-07-15 Completed [facility] 15:38:00 [facility] Afluria single dose Afluria single dose 2020-07-15 Completed [facility] 15:38:00 [facility] Afluria single dose Afluria single dose 2020-07-15 Completed [facility] 15:38:00 - [facility] Afluria single dose Afluria single dose 2020-07-15 Completed [facility] 15:38:00 - [facility] Afluria single dose Afluria single dose 2020-07-15 Completed [facility] 15:38:00 [facility] Afluria single dose Afluria single dose 2020-07-15 Completed [facility] 15:38:00 - [facility] Afluria single dose Afluria single dose 2020-07-15 Completed [facility] 15:38:00 - [facility] Afluria single dose Afluria single dose 2020-07-15 Completed [facility] 15:38:00 - [facility] Afluria single dose Afluria single dose 2020-07-15 Completed [facility] 15:38:00 [facility] Kenalog Kenalog 2019-07-17 Completed [facility] (Triamcinolone) (Triamcinolone) 10:27:00 [facility] Shingrix Shingrix 2019-07-08 Completed [facility] 11:13:00 - [facility] Shingrix Shingrix 2019-07-08 Completed [facility] 11:13:00 - [facility] Shingrix Shingrix 2019-07-08 Completed [facility] 11:13:00 - [facility] Shingrix Shingrix 2019-07-08 Completed [facility] 11:13:00 [facility] Shingrix Shingrix 2019-07-08 Completed [facility] 11:13:00 - [facility] Shingrix Shingrix 2019-07-08 Completed [facility] 11:13:00 [facility] Shingrix Shingrix 2019-07-08 Completed [facility] 11:13:00 - [facility] Shingrix Shingrix 2019-07-08 Completed [facility] 11:13:00 - [facility] Shingrix Shingrix 2019-07-08 Completed [facility] 11:13:00 - [facility] Shingrix Shingrix 2019-07-08 Completed [facility] 11:13:00 - [facility] Shingrix Shingrix 2019-07-08 Completed [facility] 11:13:00 - [facility] Shingrix Shingrix 2019-07-08 Completed [facility] 11:13:00 - [facility] Shingrix Shingrix 2019-07-08 Completed [facility] 11:13:00 - [facility] Fluzone Fluzone 2019-07-07 Completed [facility] 11:12:00 - [facility] Fluzone Fluzone 2019-07-07 Completed [facility] 11:12:00 - [facility] Fluzone Fluzone 2019-07-07 Completed [facility] 11:12:00 - [facility] Fluzone Fluzone 2019-07-07 Completed [facility] 11:12:00 - [facility] Fluzone Fluzone 2019-07-07 Completed [facility] 11:12:00 - [facility] Fluzone Fluzone 2019-07-07 Completed [facility] 11:12:00 - [facility] Fluzone Fluzone 2019-07-07 Completed [facility] 11:12:00 - [facility] Fluzone Fluzone 2019-07-07 Completed [facility] 11:12:00 - [facility] Fluzone Fluzone 2019-07-07 Completed [facility] 11:12:00 - [facility] Fluzone Fluzone 2019-07-07 Completed [facility] 11:12:00 - [facility] Fluzone Fluzone 2019-07-07 Completed [facility] 11:12:00 - [facility] Fluzone Fluzone 2019-07-07 Completed [facility] 11:12:00 - [facility] Fluzone Fluzone 2019-07-07 Completed [facility] 11:12:00 - [facility] Vital Signs Vital Name Observation Time Observation Value Comments Source height 2022-07-12 11:00:00 66.00 [in_i] [facility] weight 2022-07-12 11:00:00 190 [facility] bmi 2022-07-12 11:00:00 30.66 kg/m2 [facility] height 2022-03-15 09:00:00 66.00 [in_i[facility] weight 2022-03-15 09:00:00 190 [lb_av[facility] bmi 2022-03-15 09:00:00 30.66 kg/m2 [facility] height 2021-12-14 11:20:00 66.00 [in_i] [facility] weight 2021-12-14 11:20:00 189 [lb_av] [facility] bmi 2021-12-14 11:20:00 30.5 kg/m2 [facility] height 2021-08-09 16:20:00 66.00 [in_i] [facility] weight 2021-08-09 16:20:00 189.2 [lb_av] [facility] temperature 2021-08-09 16:20:00 97.8 [degF] [facility] bmi 2021-08-09 16:20:00 30.53 kg/m2 [facility] oximetry 2021-08-09 16:20:00 99 % [facility] respiratory rate 2021-08-09 16:20:00 16 /min Comm on [facility] blood pressure 2021-08-09 16:20:00 122 mm[Hg] Common [facility] - systolic [facility] blood pressure 2021-08-09 16:20:00 80 mm[Hg] Common [facility] - diastolic [facility] Systolic blood 2020-08-10 18:45:00 137 mm[Hg] Univer sity of pressure [facility] Diastolic blood 2020-08-10 18:45:00 97 mm[Hg] Unive rsity of pressure [facility] Heart rate 2020-08-10 18:45:00 101 /min [facility] Body temperature 2020-08-10 18:45:00 38.22 Jacklyn [facility] Respiratory rate 2020-08-10 18:45:00 16 /min [facility] Body height 2020-08-10 18:45:00 167.6 cm [facility] Body weight 2020-08-10 18:45:00 83.462 kg [facility] BMI 2020-08-10 18:45:00 29.70 kg/m2 [facility] Oxygen saturation in 2020-08-10 18:45:00 97 /min [facility] Ar[facility]ial blood by [place] [employer] [facility] Pulse oximetry Branch Systolic blood 2020-08-10 18:45:00 137 mm[Hg] Univer sity of pressure [facility] Diastolic blood 2020-08-10 18:45:00 97 mm[Hg] Unive rsity of pressure [facility] Heart rate 2020-08-10 18:45:00 101 /min [facility] Body temperature 2020-08-10 18:45:00 38.22 Jacklyn [facility] Respiratory rate 2020-08-10 18:45:00 16 /min [facility] Body height 2020-08-10 18:45:00 167.6 cm [facility] Body weight 2020-08-10 18:45:00 83.462 kg [facility] BMI 2020-08-10 18:45:00 29.70 kg/m2 [facility] Oxygen saturation in 2020-08-10 18:45:00 97 /min [facility] Arterial blood by [employer] luis Pulse oximetry Branch Procedures Procedure Date / Time Performed Performing Clinician Sour e NOTICE OF PRIVACY 2020-08-10 18:36:45 [facility] CONSENT/REFUSAL FOR 2020-08-10 18:36:27 [facility] Name [facility] TREATMENT Encounters Start End Encounter Admission Attending Care Care Encounter Source Date/Time Date/Time Type Type Clinicians Facility Department ID 2022-10-04 Outpatient Jones, Na STLMLC STL[facility]C [id number] 2 Common 11:11:00 [facility] 2022-10-03 Outpatient Jones, Na STLMLC STLMLC [id number] 2 Common 09:29:00 [facility] 2022-10-02 Outpatient Jones, Na STLMLC STLMLC [id number] 2 Common 08:02:00 [facility] 2022-07-10 Outpatient Jones, Na STLMLC STLMLC [id number] 2 Common 15:09:00 [facility] 2022-06-14 Outpatient Jones, Na STLMLC STLMLC [id number] 2 Common 10:36:00 [facility] 2021-11-24 Outpatient Jones, Na STLMLC STLMLC [id number] 2 Common 13:54:01 [facility] 2021-11-09 Outpatient Jones, Na STLMLC STLMLC [id number] 2 Common 13:19:43 [id number] [facility] 2021-11-09 Outpatient Jones, Na STLMLC STLMLC [id number] 2 Common 13:09:06 [facility] 2021-11-09 Outpatient Jones, Na STLMLC STLMLC [id number] 2 Common 13:08:19 [id number] [facility] 2021-11-09 Outpatient Jones, Na STLMLC STLMLC [id number] 2 Common 12:47:23 [id number] [facility] 2021-11-09 Outpatient Jones, Na STLMLC STLMLC [id number] 2 Common 12:46:31 [id number] [facility] 2021-11-09 Outpatient Jones, Na STLMLC STLMLC [id number] 2 Common 12:26:51 [id number] [facility] 2021-11-09 Outpatient Jones, Na STLMLC STLMLC [id number] 2 Common 12:26:33 [id number] [facility] 2021-11-09 Outpatient Jones, Na STLMLC STLMLC [id number] 2 Common 12:08:49 [id number] [facility] 2021-11-09 Outpatient Jones, Na STLMLC STLMLC [id number] 2 Common 11:09:43 [id number] [facility] 2021-11-09 Outpatient Jones, Na STLMLC STLMLC [id number] 2 Common 11:09:27 [id number] [facility] 2021-11-09 Outpatient Jones, Na STLMLC STLMLC [id number] 2 Common 11:03:10 [id number] [facility] 2021-08-13 Emergency [facility] [id number] Univers 01:21:40 ity [facility] 2022-10-04 2022-10-04 OFFICE STLMLC STLMLC [id number] [facility] 00:00:00 00:00:00 VISIT EST Spir it PT LEVEL 3 [facility] 2022-10-03 2022-10-03 (TEL) STLMLC STLMLC [id number] [facility] 00:00:00 00:00:00 [facility] 2022-07-24 2022-07-24 (TEL) STLMLC STLMLC [id number] [facility] 00:00:00 00:00:00 [facility] 2022-07-12 2022-07-12 OFFICE STLMLC STLMLC [id number] [facility] 00:00:00 00:00:00 VISIT [facility] PT - CHI LEVEL 4 [facility] 2022-03-27 2022-03-27 (TEL) STLMLC STLMLC [id number] [facility] 00:00:00 00:00:00 [facility] 2022-03-15 2022-03-15 OFFICE STLMLC STLMLC [id number] [facility] 00:00:00 00:00:00 VISIT [facility] PT - CHI LEVEL 4 [facility] 2021-12-14 2021-12-14 OFFICE STLMLC STLMLC [id number] [facility] 00:00:00 00:00:00 VISIT [facility] PT - CHI LEVEL 4 [facility] 2021-11-10 2021-11-10 (TEL) STLMLC STLMLC [id number] [facility] 00:00:00 00:00:00 [facility] 2021-09-07 2021-09-07 (TEL) STLMLC STLMLC [id number] [facility] 00:00:00 00:00:00 [facility] 2021-09-02 2021-09-02 (TEL) STLMLC STLMLC [id number] [facility] 00:00:00 00:00:00 [facility] 2021-08-12 2021-08-12 (TEL) STLMLC STLMLC [id number] [facility] 00:00:00 00:00:00 [facility] 2021-08-09 2021-08-09 OFFICE STLMLC STLMLC [id number] [facility] 00:00:00 00:00:00 VISIT [facility] PT - CHI LEVEL 4 [facility] 2021-06-03 2021-06-03 Outpatient STLMLC STLMLC [id number] Common 00:00:00 00:00:00 [facility] 2021-05-04 2021-05-04 Outpatient STLMLC STLMLC [id number] Common 00:00:00 00:00:00 [facility] 2021-04-22 2021-04-22 Outpatient STLMLC STLMLC [id number] Common 00:00:00 00:00:00 [facility] 2021-03-15 2021-03-15 Outpatient STLMLC STLMLC [id number] Common 00:00:00 00:00:00 [facility] 2021-03-15 2021-03-15 Outpatient STLMLC STLMLC [id number] Common 00:00:00 00:00:00 [facility] 2021-01-24 2021-01-24 Outpatient STLMLC STLMLC [id number] Common 00:00:00 00:00:00 [facility] 2021-01-23 2021-01-23 Outpatient STLMLC STLMLC [id number] Common 00:00:00 00:00:00 [facility] 2021-01-14 2021-01-14 Outpatient STLMLC STLMLC [id number] Common 00:00:00 00:00:00 [facility] 2021-01-13 2021-01-13 Outpatient STLMLC STLMLC [id number] Common 00:00:00 00:00:00 [facility] 2020-11-22 2020-11-22 Outpatient STLMLC STLMLC [id number] Common 00:00:00 00:00:00 [facility] 2020-11-22 2020-11-22 Outpatient STLMLC STLMLC [id number] Common 00:00:00 00:00:00 [facility] 2020-11-22 2020-11-22 Outpatient STLMLC STLMLC [id number] Common 00:00:00 00:00:00 [facility] 2020-11-15 2020-11-15 Outpatient STLMLC STLMLC [id number] Common 00:00:00 00:00:00 [facility] 2020-09-14 2020-09-14 Outpatient STLMLC STLMLC [id number] Common 00:00:00 00:00:00 [facility] 2020-08-23 2020-08-23 Outpatient STLMLC STLMLC [id number] Common 00:00:00 00:00:00 [facility] 2020-08-13 2020-08-13 Outpatient R SARATH, [facility] [id number] Univers 13:00:00 13:00:00 SENDIL dianey [facility] 2020-08-12 2020-08-12 Letter NATY Poe [id number] Univers 00:00:00 00:00:00 (Out) Mayela MAO [id number] [facility] [id number] Juan Luis as [id number] [address] 2020-08-12 2020-08-12 Letter NATY Poe [id number] 00:00:00 00:00:00 (Out) Mayela MAO [id number] [facility] [id number] 2020-08-12 2020-08-12 Telephone NATY Daly [id number] 00:00:00 00:00:00 Lexi MAO [id number] [facility] [id number] 2020-08-10 2020-08-10 Emergency Gladis Sandy [facility] [id number] Univers 13:49:00 14:51:00 [place]ilie[place]zia [place] [id number] [facility] [place] [id number] [facility] [id number] [place] [id number] [place] 2020-08-10 2020-08-10 Emergency Gladis Sandy [facility] [id number] 13:49:00 14:51:00 Emilie Warren[place] [id number] [place] [id number] [place] [id number] 2020-07-15 2020-07-15 Outpatient STLMLC STLMLC [id number] Common 00:00:00 00:00:00 [facility] 2020-06-15 2020-06-15 [facility] [id number] Common 16:20:00 16:20:[address] [facility] 2020-04-30 2020-04-30 Outpatient [id number] Common 16:09:00 16:09:[address] [facility] 2020-04-29 2020-04-29 [id number] Common 09:40:00 09:40:[address] [facility] 2020-04-27 2020-04-27 [facility] [id number] Common 13:33:00 13:33:[address] [facility] 2020-04-14 2020-04-14 [facility] [id number] Common 16:22:00 16:22:[address] [facility] 2020-04-09 2020-04-09 [facility] [id number] Common 14:00:00 14:00:[address] [facility] 2020-03-22 2020-03-22 [facility] [id number] Common 09:00:00 09:00:[address] [facility] 2020-03-17 2020-03-17 [facility] [id number] Common 14:39:00 14:39:00 t [facility] [address] [facility] 2020-01-06 2020-01-06 [facility] [id number] Common 13:00:00 13:00:[address] [facility] 2019-12-08 2019-12-08 [facility] [id number] Common 13:20:00 13:20:[address] [facility] 2019-11-07 2019-11-07 [facility] [id number] Common 14:00:00 14:00:[address] [facility] 2019-10-06 2019-10-06 [facility] [id number] Common 14:00:00 14:00:[address] [facility] 2019-09-09 2019-09-09 [facility] [id number] Common 08:54:00 08:54:[address] [facility] 2019-09-08 2019-09-08 [facility] [id number] Common 16:01:00 16:01:[address] [facility] 2019-09-01 2019-09-01 [facility] [id number] Common 13:00:00 13:00:[address] [facility] 2019-08-11 2019-08-11 [facility] [id number] Common 10:31:00 10:31:[address] [facility] 2019-08-08 2019-08-08 [facility] [id number] Common 10:40:00 10:40:[address] [facility] 2019-07-17 2019-07-17 [facility] [id number] Common 09:40:00 09:40:[address] [facility] 2019-07-04 2019-07-04 [facility] [id number] Common 11:00:00 11:00:[address] [facility] 2019-06-18 2019-06-18 [facility] [id number] Common 16:03:00 16:03:[address] [facility] 2019-06-18 2019-06-18 [facility] [id number] Common 10:51:00 10:51:[address] [facility] 2019-05-27 2019-05-27 [facility] [id number] Common 16:53:00 16:53:[address] [facility] 2019-05-27 2019-05-27 [facility] [id number] Common 08:00:00 08:00:[address] [facility] 2019-04-24 2019-04-24 [facility] [id number] Common 14:00:00 14:00:[address] [facility] 2019-02-18 2019-02-18 [facility] [id number] Common 08:01:00 08:01:[address] [facility] 2019-02-14 2019-02-14 [facility] [id number] Common 08:19:00 08:19:[address] [facility] 2019-02-11 2019-02-11 [facility] [id number] Common 16:00:00 16:00:[address] [facility] 2019-01-17 2019-01-17 [facility] [id number] Common 10:42:00 10:42:[address] [facility] 2019-01-17 2019-01-17 [facility] [id number] Common 10:00:00 10:00:[address] [facility] 2018-12-19 2018-12-19 [facility] [id number] Common 14:00:00 14:00:[address] [facility] 2018-12-03 2018-12-03 [facility] [id number] Common 15:30:00 15:30:[address] [facility] 2018-11-21 2018-11-21 [facility] [id number] Common 14:30:00 14:30:[address] [facility] 2018-11-11 2018-11-11 [facility] [id number] Common 08:33:00 08:33:[address] [facility] 2018-10-21 2018-10-21 [facility] [id number] Common 11:00:00 11:00:[address] [facility] 2018-09-16 2018-09-16 [facility] [id number] Common 14:30:00 14:30:[address] [facility] 2018-07-05 2018-07-05 [facility] [id number] Common 11:30:00 11:30:[address] [facility] 2018-06-28 2018-06-28 [facility] [id number] Common 09:57:00 09:57:[address] [facility] 2018-06-17 2018-06-17 [facility] [id number] Common 16:56:00 16:56:[address] [facility] 2018-06-13 2018-06-13 Out[facility] [id number] Common 14:30:00 14:30:[address] [facility] 2018-06-06 2018-06-06 [facility] [id number] Common 15:00:00 15:00:[address] [facility] 2018-05-22 2018-05-22 [facility] [id number] Common 12:55:00 12:55:[address] [facility] 2018-05-13 2018-05-13 [facility] [id number] Common 15:00:00 15:00:[address] [facility] 2018-05-07 2018-05-07 [facility] [id number] Common 10:32:00 10:32:[address] [facility] 2018-04-12 2018-04-12 [facility] [id number] Common 10:15:00 10:15:[address] [facility] 2018-03-12 2018-03-12 [facility] [id number] Common 14:15:00 14:15:[address] [facility] 2018-02-13 2018-02-13 Outpatient Stephanie Kei [id number] Common 15:15:00 15:15:00 t [employer] [address] [facility] 2018-02-11 2018-02-11 Outpatient Stephanie Choudhury [id number] Common 14:00:00 14:00:00 t Specialty[facility] Results Test Description Test Time Test Comments Results Result [facility] e Comments VAGINA,BIOPSY 2018-07-16 14:09:00 ----RUN DATE: 07/16/18 [facility] PAGE 1 RUN TIME: 1847 Specimen Inquiry RUN USER: INTERFACE ----PATIENT: CHERYL BAEZ LOC: [facility] U #: [id number] AGE/SX: 53/F ROOM: RE07/15/18REG DR: Erik Severino MD : 61 BED: DIS: STATUS: CLEVE RANDOLPH TLOC: ---- SPEC #: [id number] RECD: 07/15/18 STATUS: NATHEN DEJESUS #: [id number] GORGE: 07/15/18- SUBM DR: Erik Severino MD ENTERED: 07/15/18 SP TYPE: VAGBX [facility] DR: ORDERED: LEVEL IV CODES: [id number] - VAGINA, NOS PROCEDURES: LEVEL IV (Incomplete) TISSUES: VAGINA, NOS - VAGINAL MESH CLINICAL HISTORY 53 year old, complication of internal prosthetic device (kr) FINAL DIAGNOSIS Vaginal mesh, excision: - fibroconnective tissue with moderate to severe chronic inflammation containing numerous fragments of foreign material compatible with mesh, associated with a foreign body giant cell reaction - few microabscesses identified Tissue code 1 CPT code(s): 25154 [facility]/siva 07/16/18 @ 1327 GROSS DESCRIPTION The specimen is received in a formalin-filled container, labeled with the patient's name and designated "vaginal mesh". The specimen consists of an irregular 2 x 1.6 x 0.2 cm portion of nieto fabric mesh, teal suture and adhesed red tissue. It is submitted in toto in one cassette. /siva 07/15/18 @ 1329 MICROSCOPIC DESCRIPTION The specimen consists of multiple fragments of fibroconnective tissue containing polarizable foreign material associated with a foreign body giant cell reaction. A chronic inflammatory cell infiltrate is present composed of mostly small lymphocytes and plasma cells. phyllis/siva 07/16/18 @ 1326 ---- Signed Deanna Haines 07/16/18 1409 ---- END OF REPORT
[2023-06-13] MEDS ORDERED: IBUPROFEN 200 MG TAB PO ONE (10:11)
[2023-06-13] MEDS ORDERED: IBUPROFEN 400 MG TAB ONE (10:11)
--- NOTE | 2023-06-13 10:44 | ER ---
Nurse's Notes [facility] Name: Cheryl Barney Age: 58 yrs Sex: Female : 1965 Arrival Date: 06/13/2023 Time: 09:23 Bed 15 Private MD: Diagnosis: SARS-associated coronavirus as the cause of diseases classified elsewhere Presentation: 06/13 09:32 Chief complaint: Severe headache and fever x 4 days, N/V 2 days ago, TMAX 102. hb Coronavirus screen: Client presents with at least one sign or symptom that may indicate coronavirus-19. Standard/surgical mask placed on the client. Provider contacted for isolation considerations. Ebola Screen: No symptoms or risks identified at this time. Initial Sepsis Screen: Does the patient meet any 2 criteria? HR > 90 bpm. No. Patient's initial sepsis screen is negative. Does the patient have a suspected source of infection? No. Patient's initial sepsis screen is negative. Risk Assessment: Do you want to hurt yourself or someone else? Patient reports no desire to harm self or others. Onset of symptoms was June 10, 2023. 09:32 Method Of Arrival: Ambulatory hb 09:32 Acuity: SILVER 3 hb Triage Assessment: 10:50 Headache History: The patient has had previous headaches and this one is similar to ll1 previous episodes. General: Appears uncomfortable, ill, Behavior is calm, cooperative, appropriate for age. Pain: Pain currently is 3 out of 10 on a pain scale. Pain began 2-3 days ago. Also complains of nausea, labile emotions. Historical: - Allergies: 09:33 Tramadol HCl; hb 09:33 Paper Tape; hb - Immunization history:: Adult Immunizations up to date. - Social history:: Smoking status: Patient denies any tobacco usage or history of. Screenin:00 [facility] ED Fall Risk Assessment (Adult) Score/Fall Risk Level 0 - 2 = Low Risk ll1 Oriented to surroundings, Maintained a safe environment, Educated pt \T\ family on fall prevention, incl call for assistance when getting out of bed, Hourly rounding (assess needs \T\ fall precautionary measures) done. Abuse screen: Denies threats or abuse. Nutritional screening: No deficits noted. Tuberculosis screening: No symptoms or risk factors identified. Assessment: 09:40 General: Appears uncomfortable, ill, Behavior is calm, cooperative, appropriate for ll1 age, Reports fever for feeling ill for fatigue for. Pain: Complains of pain in head Quality of pain is described as aching, Pain began 2-3 days ago. Neuro: Reports headache weakness. GI: Reports vomiting, vomited once Sunday, better now. EENT: Reports nasal congestion. 10:02 Reassessment: No changes from previously documented assessment. Patient and/or family ll1 updated on plan of care and expected duration. Pain level reassessed. Patient is alert, oriented x 3, equal unlabored respirations, skin warm/dry/pink. Vital Signs: 09:32 BP 143 / 88; Pulse 110; Resp 18; Temp 100.8(O); Pulse Ox 100% on R/A; Weight 81.65 kg; hb Height 5 ft. 6 in. ; Pain 10/10; 10:50 BP 130 / 87; Pulse 91; Resp 17; Temp 99.3(O); Pulse Ox 98% on R/A; ll1 09:32 Body Mass Index 29.05 (81.65 kg, 167.64 cm) hb 09:32 Pain Scale: Adult hb ED Course: 09:26 Patient arrived in ED. mr 09:28 Leif Venegas DO is Attending Physician. ms3 09:30 Arm band placed on Patient placed in an exam room, on a stretcher. hb 09:32 Zamzam Angulo, RN is Primary Nurse. ll1 09:33 Triage completed. hb 09:41 Flu Sent. ap3 09:41 COVID-19 SARS RT PCR Sent. ap3 10:02 Flu Sent. ll1 10:02 COVID-19 SARS RT PCR Sent. ll1 10:53 Patient has correct armband on for positive identification. Bed in low position. Call ll1 light in reach. Provided Education on: n/a. 10:53 No provider procedures requiring assistance completed. Patient did not have IV access ll1 during this emergency room visit. Administered Medications: 10:02 Drug: Ibuprofen PO 600 mg Route: PO; ll1 10:50 Follow up: Response: No adverse reaction; Temperature is decreased; RASS: Alert and ll1 Calm (0) Medication: 10:53 VIS not applicable for this client. ll1 Outcome: 10:43 Discharge ordered by . ms3 10:53 Patient left the ED. ll1 10:53 Discharged to home ambulatory. ll1 10:53 Condition: stable 10:53 Discharge instructions given to patient, Instructed on discharge instructions, follow up and referral plans. Demonstrated understanding of instructions, follow-up care. Signatures: Katerine Lam Heather, RN RN Es Currie RN RN ap3 Zamzam Angulo RN RN ll1 Leif eVnegas DO DO ms3
--- NOTE | 2023-06-13 10:44 | EDPHYS ---
Physician Documentation [facility] Name: Cheryl Barney Age: 58 yrs Sex: Female : 1965 Arrival Date: 06/13/2023 Time: 09:23 Bed 15 Private MD: ED Physician Leif Venegas HPI: 06/13 10:43 This 58 yrs old Female presents to ER via Ambulatory with complaints of ms3 Headache, Fever. 10:43 58-year-old female with past medical history of hyperlipidemia, hypertension, diabetes, ms3 hypothyroidism presents for headache that began on Sunday. Patient states she began vomiting on Sunday. Patient also endorses headache, congestion. Patient denies cough, sore throat, sick contacts. Patient states her discomfort is a 6/10 and throbbing. Patient denies alleviating or inciting factors. Historical: - Allergies: 09:33 Tramadol HCl; hb 09:33 Paper Tape; hb - Immunization history:: Adult Immunizations up to date. - Social history:: Smoking status: Patient denies any tobacco usage or history of. ROS: 10:43 Constitutional: Negative for fever, and chills. Neck: Negative for injury, pain, and ms3 swelling, Cardiovascular: Negative for chest pain, and palpitations. Respiratory: Negative for shortness of breath, cough, wheezing, and pleuritic chest pain, Abdomen/GI: Negative for abdominal pain, nausea, vomiting, diarrhea, and constipation, MS/Extremity: Negative for injury and deformity, Skin: Negative for injury, rash, and discoloration. 10:43 Neuro: Positive for headache. 10:43 All other systems are negative. Exam: 10:43 Constitutional: This is a well developed, well nourished patient who is awake, alert, ms3 and in no acute distress. Neck: Trachea midline, no cervical lymphadenopathy. Supple, full range of motion without nuchal rigidity, or vertebral point tenderness. No Meningismus. Chest/axilla: Normal chest wall appearance and motion. Nontender with no deformity. Cardiovascular: Regular rate and rhythm with a normal S1 and S2. No gallops, murmurs, or rubs. Normal PMI, no JVD. No pulse deficits. Respiratory: Lungs have equal breath sounds bilaterally, clear to auscultation and percussion. No rales, rhonchi or wheezes noted. No increased work of breathing, no retractions or nasal flaring. Abdomen/GI: Soft, non-tender, with normal bowel sounds. No distension or tympany. No guarding or rebound. No evidence of tenderness throughout. Skin: Warm, dry with normal turgor. Normal color with no rashes, no lesions, and no evidence of cellulitis. Neuro: Awake and alert, GCS 15, oriented to person, place, time, and situation. Cranial nerves II-XII grossly intact. Motor strength 5/5 in all extremities. Sensory grossly intact. Cerebellar exam normal. Normal gait. Vital Signs: 09:32 BP 143 / 88; Pulse 110; Resp 18; Temp 100.8(O); Pulse Ox 100% on R/A; Weight 81.65 kg; hb Height 5 ft. 6 in. ; Pain 10/10; 10:50 BP 130 / 87; Pulse 91; Resp 17; Temp 99.3(O); Pulse Ox 98% on R/A; ll1 09:32 Body Mass Index 29.05 (81.65 kg, 167.64 cm) hb 09:32 Pain Scale: Adult hb MDM: 09:49 Patient medically screened. ms3 10:43 Differential diagnosis: Flu versus COVID versus URI versus headache. Data reviewed: ms3 vital signs, nurses notes, lab test result(s), and as a result, I will discharge patient. I considered the following discharge prescriptions or medication management in the emergency department Medications were administered in the Emergency Department. See MAR. Counseling: I had a detailed discussion with the patient and/or guardian regarding the historical points, exam findings, and any diagnostic results supporting the discharge/admit diagnosis, lab results, the need for outpatient follow up, to return to the emergency department if symptoms worsen or persist or if there are any questions or concerns that arise at home. Special discussion: I discussed with the patient/guardian in detail that at this point there is no indication for admission to the hospital. It is understood, however, that if the symptoms persist or worsen the patient needs to return immediately for re-evaluation. ED course: Discussed positive COVID results with patient. Patient to follow-up with primary care physician in 2 to 3 days. Patient understands agrees plan. All questions were answered. Return precautions discussed include worsening symptoms, or any other concerns. 06/13 09:31 Order name: COVID-19 SARS RT PCR; Complete Time: : ms3 06/13 09:36 Order name: Flu; Complete Time: ms3 Administered Medications: 10:02 Drug: Ibuprofen PO 600 mg Route: PO; ll1 10:50 Follow up: Response: No adverse reaction; Temperature is decreased; RASS: Alert and ll1 Calm (0) Disposition Summary: 06/13/23 10:43 Discharge Ordered Location: Home ms3 Condition: Stable ms3 Diagnosis - SARS-associated coronavirus as the cause of diseases classified elsewhere ms3 Followup: ms3 - With: Private Physician - When: 2 - 3 days - Reason: Recheck today's complaints Discharge Instructions: - Discharge Summary Sheet ms3 - COVID-19 ms3 - How to Protect Yourself and Others - [facility] (12/09/2021) ms3 - 10 Things You Can Do to Manage Your COVID-19 Symptoms at Home - [facility] (04/29/2021) ms3 - Viral Illness, Adult ms3 Forms: - Medication Reconciliation Form ms3 - Thank You Letter ms3 - Antibiotic Education ms3 - Prescription Opioid Use ms3 - Patient Portal Instructions ms3 - Leadership Thank You Letter ms3 Signatures: Dispatcher [employer] Carlene Moreno, TOOTH CUTTER PINION-C TOOTH CUTTER PINION-Terrie Cuellar, RN RN Zamzam Cummins RN RN ll1 Leif Venegas, DO DO ms3
[2023-06-13 11:00] VITALS: BP 143/88; TEMP 100.8; O2SAT 100
== END 2023-06-13 10:53 | disposition home or self-care (01) ==
LOC: ER 09:23
DX: U07.1 COVID-19 (principal); Z88.5 Allergy status to narcotic agent; Z91.048 Other nonmedicinal substance allergy status
CPT/HCPCS: 87635; 87804

== ENCOUNTER 2025-05-29 15:56 | Emergency (ER) | payer OTHER ==
--- OUTSIDE RECORDS SUMMARY | 2025-05-29 16:00 | XMS REPORT | Continuity of Care Document ---
Author Name Unknown Address [address] [facility] [address] [place] [address] [facility] Address [address] [facility] [place] [address] Care Team Providers Care Medical Records Assistant Name Role Phone Jose Mirza Jr. Primary Care Physician [phone] Wendy Jones Attending Clinician Unavailable Gladis GUNDERSON Attending Clinician Unavailable Gladis GUNDERSON Attending Clinician Unavailable Gladis Newby Attending Clinician [phone] DORI CLEMENS Attending Clinician Unavaildeysi Poe RN, Mayela Grewal Attending Clinician Unavailab Mary HANNON, Lexi Attending Clinician Unavail le Payers Payer Name Policy Type Policy Number Effective Date Expirati on Date Source [facility] [id number] 2015 00:00:00 [id number] 2024 00:00:00 [facility] C1 [id number] 2017 00:00:00 [place] [address] [id number] 2017 00:00:[address] [facility] C1 [id number] 2017 00:00:00 [facility] C1 [id number] 2017 00:00:00 [facility] Problems Condition Name Condition Details Condition Category Status Onset Date Resolution Date Last Treatment Date Treating Clinician Comments Source Metabolic syndrome Metabolic syndrome Disease Active 2015-10 00:00: 00 [facility] ACC/AHA stage A heart failure ACC/AHA stage A heart failure Disease Active 04-20 00:00: 00 [facility] Dyslipidem ia Dyslipidem ia Disease Active 04-20 00:00: 00 [facility] Atypical chest pain Atypical chest pain Disease Active 04-20 00:00: 00 [facility] Pyelonephr itis Pyelonephr itis Disease Active 11-22 00:00: 00 [facility] [id number] Prediabete s Problem [facility] Hyperglyce nazario Hyperglyce nazario Problem [facility] Acquired hypothyroi dism Acquired hypothyroi dism Problem [facility] Anxiety Anxiety Problem [facility] Essential hypertensi on Benign essential HTN Problem [facility] Incontinen ce Incontinen ce Problem [facility] Hyperlipid emia Hyperlipid emia Problem [facility] [id number] Vaginal bleeding Problem [facility] [id number] Controlled type 2 diabetes mellitus without complicati on, without long-term current use of insulin Problem [facility] [id number] Well adult exam Problem [facility] [id number] 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) Problem [facility] [id number] Mixed incontinen ce Problem [facility] [id number] Type 2 diabetes mellitus with hyperglyce nazario, without long-term current use of insulin Problem [facility] Postablati ve ovarian failure Symptomati c postsurgic al menopause Problem [facility] [id number] Viral upper respirator y tract infection Problem [facility] [id number] Gastroesop hageal reflux disease, esophagiti s presence not specified Problem [facility] [id number] Non-season al allergic rhinitis, unspecifie d trigger Problem [facility] Allergies, Adverse Reactions, Alerts Allergy Name Allergy Type Status Severity Reaction(s) Onset Date Inactive Date Treating Clinician Comments Source tramadol DA Active [place] 07-02 00:00: 00 [facility] PAPER TAPE DA Active [place] 07-02 00:00: 00 [facility] Tramadol Drug Intolera nce Active Other - See comments 11-23 00:00: 00 Pt stated she get shaky and diaphoret ic. [facility] TRAMADOL DRUG INGREDI Active Med Other-Cmnt 11-23 00:00: 00 [facility] Tramadol Tramadol Active Unknown Commo n [facility] Social History Social Habit Start Date Stop Date Quantity Comments Source [facility] Exposure to SARS-CoV-2 (event) Not sure [facility] History of Tobacco Use [facility] Sex Assigned At [facility] History of Social function 2020-05-19 00:00:00 2020-05-19 00:00:00 [facility] Cigarettes smoked current (pack per day) - Reported 2019-09-10 00:00:00 2019-09-10 00:00:00 [facility] Tobacco use and exposure 2018-08-06 00:00:00 2018-08-06 00:00:00 Smokeless tobacco non-user [facility] Smoking Status Start Date Stop Date Source Never Smoker [facility] Ex-smoker 2018-08-06 00:00:00 2018-08-06 [facility]00[facility]00 [facility] Ordered Medication Name Filled Medication Name Start Date Stop Date Current Medication? Ordering Clinician Indication Dosage Frequency Signature (SIG) Comments Components Source cefdinir (OMNICEF) capsule 300 mg 2024-10-26 08:15: 00 10-26 08:21 :00 No 300mg 300 mg, Oral, ONCE, 1 dose, On 10/26/24 at 0215, OLESYA, Reason for Anti-Infec tive: Documented Infection, Documented Infection Site: Urine, Duration of Therapy: 10 days [facility] cefdinir 300 mg capsule 10-26 00:00: 00 11-06 05:59 :00 No [id number] 300mg Take 1 capsule by mouth every 12 (twelve) hours for 10 days. [facility] ALPRAZolam 0.25 MG ALPRAZolam 0.25 MG 2021-10 00:00: 00 No ALPRAZolam 0.25 MG ALPRAZolam 0.25 MG ALPRAZolam 0.25 MG 2021-10 00:00: 00 No ALPRAZolam 0.25 MG Tradjenta 5 MG Tradjenta 5 MG 2021-10 2- 00:00: 00 No 1{table t} QD Tradjenta 5 MG Tradjenta 5 MG Tradjenta 5 MG 2021-10 2-09 00:00: 00 No 1{table t} QD Tradjenta 5 MG Trulicity 0.75mg/0.5m l Trulicity 0.75mg/0.5m l 2021-10 0-10 00:00: 00 No Trulicity 0.75mg/0.5 ml Trulicity 0.75mg/0.5m l Trulicity 0.75mg/0.5m l 2021-10 010 00:00: 00 No Trulicity 0.75mg/0.5 ml Trulicity 0.75mg/0.5m l Trulicity 0.75mg/0.5m l 2-1 0-10 00:00: 00 No Trulicity 0.75mg/0.5 ml Glimepiride 2 MG Glimepiride 2 MG 2-0 9-28 00:00: 00 No 1{table t} Glimepirid e 2 MG Glimepiride 2 MG Glimepiride 2 MG 2-0 9- 00:00: 00 No 1{table t} Glimepirid e 2 MG Glimepiride 2 MG Glimepiride 2 MG 2-0 9- 00:00: 00 No 1{table t} Glimepirid e 2 MG Glimepiride 2 MG Glimepiride 2 MG 2-0 9- 00:00: 00 No 1{table t} Glimepirid e 2 MG ALPRAZolam 0.25 MG ALPRAZolam 0.25 MG 2-0 9-07 00:00: 00 No ALPRAZolam 0.25 MG ALPRAZolam 0.25 MG ALPRAZolam 0.25 MG 2-0 9-07 00:00: 00 No ALPRAZolam 0.25 MG ALPRAZolam 0.25 MG ALPRAZolam 0.25 MG 2-0 9-07 00:00: 00 No ALPRAZolam 0.25 MG ALPRAZolam 0.25 MG ALPRAZolam 0.25 MG 2-0 4-26 00:00: 00 No ALPRAZolam 0.25 MG ALPRAZolam 0.25 MG ALPRAZolam 0.25 MG 2-0 1-20 00:00: 00 No ALPRAZolam 0.25 MG Xanax 0.25 MG Xanax 0.25 MG 1-1 1-03 00:00: 00 No 1{table t} BID Xanax 0.25 MG ALPRAZolam 0.25 MG ALPRAZolam 0.25 MG 1-0 9-13 00:00: 00 No ALPRAZolam 0.25 MG ALPRAZolam 0.25 MG ALPRAZolam 0.25 MG 1-0 9- 00:00: 00 No ALPRAZolam 0.25 MG Glimepiride 1 MG Glimepiride 1 MG 05-04 00:00: 00 No 1{table t} Glimepirid e 1 MG Glimepiride 1 MG Glimepiride 1 MG 05-04 00:00: 00 No 1{table t} Glimepirid e 1 MG Albuterol Sulfate HFA 108 (90 Base) MCG/ACT Albuterol Sulfate HFA 108 (90 Base) MCG/ACT 03-17 00:00: 00 No 2{puffs } Albuterol Sulfate HFA 108 (90 Base) MCG/ACT Albuterol Sulfate HFA 108 (90 Base) MCG/ACT Albuterol Sulfate HFA 108 (90 Base) MCG/ACT 03-17 00:00: 00 No 2{puffs } Albuterol Sulfate HFA 108 (90 Base) MCG/ACT Albuterol Sulfate HFA 108 (90 Base) MCG/ACT Albuterol Sulfate HFA 108 (90 Base) MCG/ACT 03-17 00:00: 00 No 2{puffs } Albuterol Sulfate HFA 108 (90 Base) MCG/ACT Albuterol Sulfate HFA 108 (90 Base) MCG/ACT Albuterol Sulfate HFA 108 (90 Base) MCG/ACT 03-17 00:00: 00 No 2{puffs } Albuterol Sulfate HFA 108 (90 Base) MCG/ACT naproxen (NAPROSYN) tablet 500 mg 2019-10 20:30: 00 08-10 19:32 :00 No 500mg 500 mg, Oral, ONCE, 1 dose, Sun08/10/20 at 1530, Routine [facility] naproxen (NAPROSYN) 500 mg tablet 2019-10 00:00: 00 Yes [id number] 500mg Take 1 tablet by mouth 2 (two) times daily with meals. [facility] ondansetron (ZOFRAN ODT) 4 mg disintegrat ing tablet 2019-10 00:00: 00 Yes [id number] 4mg Take 1 tablet by mouth every 8 (eight) hours as needed for Nausea and Vomiting (N/V). [facility] benzonatate 200 mg capsule 2019-10 00:00: 00 Yes [id number] 200mg Take 1 capsule by mouth 3 (three) times daily as needed for Cough for up to 20 doses. [facility] Nateglinide Nateglinide 17 00:00: 00 Yes Na Jones 1 tablet before meals [facility] Glimepiride Glimepiride 6-08 00:00: 00 Yes Na Jones 1 tablet with breakfast or the first main meal of the day [facility] ALPRAZolam (XANAX) 2 mg tablet 2018-10 20:54: 00 Yes .25mg Take 0.25 mg by mouth 2 (two) times daily. [facility] estradiol 0.01 % (0.1 mg/gram) vaginal cream 2018-10 20:54: 00 Yes [id number] estradiol 0.01% (0.1 mg/gram) vaginal cream Insert by vaginal route. [facility] atorvastati n 20 mg tablet 2018-10 20:54: 00 Yes 20mg Take 20 mg by mouth at bedtime. [facility] estradiol 0.01 % (0.1 mg/gram) vaginal cream 2018-10 14:54: 00 Yes [id number] estradiol 0.01% (0.1 mg/gram) vaginal cream Insert by vaginal route. [facility] atorvastati n 20 mg tablet 2018-10 14:54: 00 Yes 20mg Take 20 mg by mouth at bedtime. [facility] ALPRAZolam (XANAX) 2 mg tablet 2018-10 14:54: 00 Yes .25mg Take 0.25 mg by mouth 2 (two) times daily. [facility] cetirizine 10 mg tablet 2018-10 00:00: 00 Yes TAKE 1 TABLET BY MOUTH ONCE DAILY FOR 90 DAYS [facility] Flonase Flonase 2018-10 00:00: 00 Yes Na Jones 2 spray in each nostril [facility] Kenalog (Triamcinol one) Kenalog (Triamcinol one) 2018-10 0-03 00:00: 00 No 40mg [facility] Flonase 50 MCG/ACT Flonase 50 MCG/ACT 2018-10 0-03 00:00: 00 No 2{spray _in_eac h_nostr il} QD Flonase 50 MCG/ACT Flonase 50 MCG/ACT Flonase 50 MCG/ACT 2018-10 0-03 00:00: 00 No 2{spray _in_eac h_nostr il} QD Flonase 50 MCG/ACT Kenalog (Triamcinol one) Kenalog (Triamcinol one) 2018-10 003 00:00: 00 No 40mg [facility] Flonase 50 MCG/ACT Flonase 50 MCG/ACT 2018-10 003 00:00: 00 No 2{spray _in_eac h_nostr il} QD Flonase 50 MCG/ACT Kenalog (Triamcinol one) Kenalog (Triamcinol one) 2018-10 003 00:00: 00 No 40mg [facility] Flonase 50 MCG/ACT Flonase 50 MCG/ACT 2018-10 003 00:00: 00 No 2{spray _in_eac h_nostr il} QD Flonase 50 MCG/ACT Kenalog (Triamcinol one) Kenalog (Triamcinol one) 2018-10 0-03 00:00: 00 No 40mg [facility] Flonase 50 MCG/ACT Flonase 50 MCG/ACT 2018-10 0-03 00:00: 00 No 2{spray _in_eac h_nostr il} QD Flonase 50 MCG/ACT Kenalog (Triamcinol one) Kenalog (Triamcinol one) 2018-10 0-03 00:00: 00 No 40mg [facility] Flonase 50 MCG/ACT Flonase 50 MCG/ACT 2018-10 0-03 00:00: 00 No 2{spray _in_eac h_nostr il} QD Flonase 50 MCG/ACT Kenalog (Triamcinol one) Kenalog (Triamcinol one) 2019-1 0-03 00:00: 00 No 40mg [facility] Flonase 50 MCG/ACT Flonase 50 MCG/ACT 2019- 0-03 00:00: 00 No 2{spray _in_eac h_nostr il} QD Flonase 50 MCG/ACT Xanax Xanax Yes Na Jones 1 tablet C [facility] Atorvastati n Calcium Atorvastati n Calcium Yes Na Jnoes 1 tablet Commo n [facility] Cozaar Cozaar Yes Na Jones 1 tablet [facility] Oxybutynin Chloride ER Oxybutynin Chloride ER Yes Na Jones 1 tablet Com [facility] Levothyroxi ne Sodium Levothyroxi ne Sodium Yes Na Jones 1 tablet on an empty stomach in the morning [facility] Metformin HCl Metformin HCl Yes Na Jones 1 tablet with a meal [facility] Atorvastati n Calcium Atorvastati n Calcium Yes Na [facility] Levothyro[facility] Sodium Levothyroxi ne Sodium Yes Na Jones 1 tablet on an empty stomach in the morning [facility] Losartan Potassium Losartan Potassium Yes Na Jones Take 1 tablet by mouth once daily for 90 days [facility] Levothyroxi ne Sodium 50 MCG Levothyroxi ne Sodium 50 MCG No QD Levothyrox ine Sodium 50 MCG Albuterol Sulfate HFA 108 (90 Base) MCG/ACT Albuterol Sulfate HFA 108 (90 Base) MCG/ACT No 2{puffs } Albuterol Sulfate HFA 108 (90 Base) MCG/ACT Xanax 0.25 MG Xanax 0.25 MG No 1{table t} BID Xanax 0.25 MG Cozaar 50 MG Cozaar 50 MG No 1{table t} QD Cozaar 50 MG Albuterol Sulfate HFA 108 (90 Base) MCG/ACT Albuterol Sulfate HFA 108 (90 Base) MCG/ACT No 2{puffs } Albuterol Sulfate HFA 108 (90 Base) MCG/ACT Oxybutynin Chloride ER 10 MG Oxybutynin Chloride ER 10 MG No 1{table t} QD Oxybutynin Chloride ER 10 MG Atorvastati n Calcium 40 MG Atorvastati n Calcium 40 MG No 1{table t} QD Atorvastat in Calcium 40 MG metFORMIN HCl 500 MG metFORMIN HCl 500 MG No metFORMIN HCl 500 MG Atorvastati n Calcium 20 MG Atorvastati n Calcium 20 MG No 1{table t} QD Atorvastat in Calcium 20 MG Levothyroxi ne Sodium 50 MCG Levothyroxi ne Sodium 50 MCG No QD Levothyrox ine Sodium 50 MCG Losartan Potassium 50 MG Losartan Potassium 50 MG No QD Losartan Potassium 50 MG Oxybutynin Chloride ER 10 MG Oxybutynin Chloride ER 10 MG No 1{table t} QD Oxybutynin Chloride ER 10 MG Albuterol Sulfate HFA 108 (90 Base) MCG/ACT Albuterol Sulfate HFA 108 (90 Base) MCG/ACT No 2{puffs } Albuterol Sulfate HFA 108 (90 Base) MCG/ACT Atorvastati n Calcium 40 MG Atorvastati n Calcium 40 MG No 1{table t} QD Atorvastat in Calcium 40 MG metFORMIN HCl 500 MG metFORMIN HCl 500 MG No metFORMIN HCl 500 MG Cozaar 50 MG Cozaar 50 MG No 1{table t} QD Cozaar 50 MG Losartan Potassium 50 MG Losartan Potassium 50 MG No QD Losartan Potassium 50 MG Levothyroxi ne Sodium 50 MCG Levothyroxi ne Sodium 50 MCG No QD Levothyrox ine Sodium 50 MCG Atorvastati n Calcium 20 MG Atorvastati n Calcium 20 MG No 1{table t} QD Atorvastat in Calcium 20 MG Albuterol Sulfate HFA 108 (90 Base) MCG/ACT Albuterol Sulfate HFA 108 (90 Base) MCG/ACT No 2{puffs } Albuterol Sulfate HFA 108 (90 Base) MCG/ACT metFORMIN HCl ER 500 MG metFORMIN HCl ER 500 MG No QD metFORMIN HCl ER 500 MG metFORMIN HCl ER 500 MG metFORMIN HCl ER 500 MG No metFORMIN HCl ER 500 MG Atorvastati n Calcium 20 MG Atorvastati n Calcium 20 MG No 1{table t} QD Atorvastat in Calcium 20 MG Xanax 0.25 MG Xanax 0.25 MG No 1{table t} BID Xanax 0.25 MG Atorvastati n Calcium 40 MG Atorvastati n Calcium 40 MG No Atorvastat in Calcium 40 MG Losartan Potassium 50 MG Losartan Potassium 50 MG No QD Losartan Potassium 50 MG metFORMIN HCl 500 MG metFORMIN HCl 500 MG No 1{table t_with_ a_meal} BID metFORMIN HCl 500 MG Cozaar 50 MG Cozaar 50 MG No 1{table t} QD Cozaar 50 MG Levothyroxi ne Sodium 50 MCG Levothyroxi ne Sodium 50 MCG No Levothyrox ine Sodium 50 MCG Oxybutynin Chloride ER 10 MG Oxybutynin Chloride ER 10 MG No 1{table t} QD Oxybutynin Chloride ER 10 MG Losartan Potassium 50 MG Losartan Potassium 50 MG No QD Losartan Potassium 50 MG Xanax 0.25 MG Xanax 0.25 MG No 1{table t} BID Xanax 0.25 MG Levothyroxi ne Sodium 50 MCG Levothyroxi ne Sodium 50 MCG No QD Levothyrox ine Sodium 50 MCG metFORMIN HCl ER 500 MG metFORMIN HCl ER 500 MG No metFORMIN HCl ER 500 MG Oxybutynin Chloride ER 10 MG Oxybutynin Chloride ER 10 MG No 1{table t} QD Oxybutynin Chloride ER 10 MG metFORMIN HCl ER 500 MG metFORMIN HCl ER 500 MG No QD metFORMIN HCl ER 500 MG metFORMIN HCl 500 MG metFORMIN HCl 500 MG No BID metFORMIN HCl 500 MG Losartan Potassium 50 MG Losartan Potassium 50 MG No Losartan Potassium 50 MG Atorvastati n Calcium 20 MG Atorvastati n Calcium 20 MG No 1{table t} QD Atorvastat in Calcium 20 MG Albuterol Sulfate HFA 108 (90 Base) MCG/ACT Albuterol Sulfate HFA 108 (90 Base) MCG/ACT No 2{puffs } Albuterol Sulfate HFA 108 (90 Base) MCG/ACT Levothyroxi ne Sodium 50 MCG Levothyroxi ne Sodium 50 MCG No Levothyrox ine Sodium 50 MCG Atorvastati n Calcium 40 MG Atorvastati n Calcium 40 MG No Atorvastat in Calcium 40 MG Cozaar 50 MG Cozaar 50 MG No 1{table t} QD Cozaar 50 MG metFORMIN HCl ER 500 MG metFORMIN HCl ER 500 MG No metFORMIN HCl ER 500 MG Losartan Potassium 50 MG Losartan Potassium 50 MG No Losartan Potassium 50 MG metFORMIN HCl 500 MG metFORMIN HCl 500 MG No BID metFORMIN HCl 500 MG Levothyroxi ne Sodium 50 MCG Levothyroxi ne Sodium 50 MCG No Levothyrox ine Sodium 50 MCG Oxybutynin Chloride ER 10 MG Oxybutynin Chloride ER 10 MG No 1{table t} QD Oxybutynin Chloride ER 10 MG Atorvastati n Calcium 40 MG Atorvastati n Calcium 40 MG No Atorvastat in Calcium 40 MG Xanax 0.25 MG Xanax 0.25 MG No 1{table t} BID Xanax 0.25 MG Atorvastati n Calcium 20 MG Atorvastati n Calcium 20 MG No 1{table t} QD Atorvastat in Calcium 20 MG Cozaar 50 MG Cozaar 50 MG No 1{table t} QD Cozaar 50 MG metFORMIN HCl ER 500 MG metFORMIN HCl ER 500 MG No metFORMIN HCl ER 500 MG Oxybutynin Chloride ER 10 MG Oxybutynin Chloride ER 10 MG No 1{table t} QD Oxybutynin Chloride ER 10 MG metFORMIN HCl 500 MG metFORMIN HCl 500 MG No 1{table t_with_ a_meal} BID metFORMIN HCl 500 MG Levothyroxi ne Sodium 50 MCG Levothyroxi ne Sodium 50 MCG No QD Levothyrox ine Sodium 50 MCG Losartan Potassium 50 MG Losartan Potassium 50 MG No QD Losartan Potassium 50 MG Atorvastati n Calcium 20 MG Atorvastati n Calcium 20 MG No 1{table t} QD Atorvastat in Calcium 20 MG Glimepiride 2 MG Glimepiride 2 MG No 1{table t} Glimepirid e 2 MG Atorvastati n Calcium 40 MG Atorvastati n Calcium 40 MG No Atorvastat in Calcium 40 MG Cozaar 50 MG Cozaar 50 MG No 1{table t} QD Cozaar 50 MG Xanax 0.25 MG Xanax 0.25 MG No 1{table t} BID Xanax 0.25 MG metFORMIN HCl ER 500 MG metFORMIN HCl ER 500 MG No metFORMIN HCl ER 500 MG Atorvastati n Calcium 20 MG Atorvastati n Calcium 20 MG No 1{table t} QD Atorvastat in Calcium 20 MG Xanax 0.25 MG Xanax 0.25 MG No 1{table t} BID Xanax 0.25 MG Atorvastati n Calcium 40 MG Atorvastati n Calcium 40 MG No Atorvastat in Calcium 40 MG Losartan Potassium 50 MG Losartan Potassium 50 MG No QD Losartan Potassium 50 MG metFORMIN HCl 500 MG metFORMIN HCl 500 MG No 1{table t_with_ a_meal} BID metFORMIN HCl 500 MG Cozaar 50 MG Cozaar 50 MG No 1{table t} QD Cozaar 50 MG Oxybutynin Chloride ER 10 MG Oxybutynin Chloride ER 10 MG No 1{table t} QD Oxybutynin Chloride ER 10 MG Vital Signs Vital Name Observation Time Observation Value Comments Bucky langford Systolic blood pressure 2024-10-26 08:00:00 130 mm[Hg] [facility] Diastolic blood pressure 2024-10-26 08:00:00 87 mm[Hg] [facility] Heart rate 2024-10-26 08:00:00 66 /min [facility] Body temperature 2024-10-26 08:00:00 36.5 Jacklyn [facility] Respiratory rate 2024-10-26 08:00:00 14 /min [facility] Oxygen saturation in Arterial blood by Pulse oximetry 2024-10-26 08:00:00 99 /min [facility] Body height 2024-10-26 06:07:00 167.6 cm [facility] Body weight 2024-10-26 06:07:00 82.101 kg [facility] BMI 2024-10-26 06:07:00 29.21 kg/m2 [facility] height 2022-07-12 11:00:00 66.00 [in_i] Com [facility] weight 2022-07-12 11:00:00 190 [lb_av] Comm on [facility] bmi 2022-07-12 11:00:00 30.66 kg/m2 Comm on [facility] height 2022-03-15 09:00:00 66.00 [in_i] Com [facility] weight 2022-03-15 09:00:00 190 [lb_av] Comm on [facility] bmi 2022-03-15 09:00:00 30.66 kg/m2 Comm on [facility] height 2021-12-14 11:20:00 66.00 [in_i] Com [facility] weight 2021-12-14 11:20:00 189 [lb_av] Comm on [facility] bmi 2021-12-14 11:20:00 30.5 kg/m2 Commo n [facility] height 2021-08-09 16:20:00 66.00 [in_i] Com mon [facility] weight 2021-08-09 16:20:00 189.2 [lb_av] Co mmon [facility] temperature 2021-08-09 16:20:00 97.8 [degF] Com mon [facility] bmi 2021-08-09 16:20:00 30.53 kg/m2 Comm on [facility] oximetry 2021-08-09 16:20:00 99 % Commo n [facility] respiratory rate 2021-08-09 16:20:00 16 /min Common [facility] blood pressure systolic 2021-08-09 16:20:00 122 mm[Hg] [facility] blood pressure diastolic 2021-08-09 16:20:00 80 mm[Hg] [facility] Systolic blood pressure 2020-08-10 18:45:00 137 mm[Hg] [facility] Diastolic blood pressure 2020-08-10 18:45:00 97 mm[Hg] [facility] Heart rate 2020-08-10 18:45:00 101 /[facility] temperature 2020-08-10 18:45:00 38.22 Jacklyn [facility] Respiratory rate 2020-08-10 18:45:00 16 /min [facility] Body height 2020-08-10 18:45:00 167.6 cm [facility] Body weight 2020-08-10 18:45:00 83.462 kg [facility] BMI 2020-08-10 18:45:00 29.70 kg/m2 [facility] Oxygen saturation in Arterial blood by Pulse oximetry 2020-08-10 18:45:00 97 /min [facility] Systolic blood pressure 2020-08-10 18:45:00 137 mm[Hg] [facility] Diastolic blood pressure 2020-08-10 18:45:00 97 mm[Hg] [facility] Heart rate 2020-08-10 18:45:00 101 /min [facility] Body temperature 2020-08-10 18:45:00 38.22 Jacklyn [facility] Respiratory rate 2020-08-10 18:45:00 16 /min [facility] Body height 2020-08-10 18:45:00 167.6 cm [facility] Body weight 2020-08-10 18:45:00 83.462 kg [facility] BMI 2020-08-10 18:45:00 29.70 kg/m2 [facility] Oxygen saturation in Arterial blood by Pulse oximetry 2020-08-10 18:45:00 97 /min [facility] Procedures Procedure Date / Time Performed Performing Clinicia n Source POCT GLUCOSE (AUTOMATED) 2024-10-26 07:57:00 Gladis Gunderson [facility] MAGNESIUM 2024-10-26 06:31:00 Gladis Gunderson [facility] TROPONIN I 2024-10-26 06:31:00 [facility] COMP. METABOLIC PANEL ([id number]) 2024-10-26 06:31:00 Gladis Gunderson [facility] CBC WITH DIFF 2024-10-26 06:31:00 Gladis Gunderson [facility] URINALYSIS 2024-10-26 06:31:00 [facility] N-TERMINAL PRO-BNP 2024-10-26 06:31:00 Gladis Gunderson [facility] POCT GLUCOSE (AUTOMATED) 2024-10-26 06:15:00 Gladis Gunderson [facility] NOTICE OF PRIVACY PRACTICES 2020-08-10 18:36:45 Doctor Unassigned, [place] [facility] CONSENT/REFUSAL FOR DIAGNOSIS AND TREATMENT 2020-08-10 18:36:27 Doctor Unassigned, [place] [facility] Encounters Start Date/Time End Date/Time Encounter Type Admission Type Attending [facility] Facility Care Department Encounter ID Source 2022-10-04 11:11:00 Outpatient Wendy Jones [facility] [id number] [facility] 2022-10-03 09:29:00 Outpatient Wendy Jones [facility] [id number] [facility] 2022-10-02 08:02:00 Outpatient Wendy Jones [facility] [id number] [facility] 2022-07-10 15:09:00 Outpatient Wendy Jones [facility] [id number] [facility] 2022-06-14 10:36:00 Outpatient Wendy Jones STLMLC STL[facility] [id number] [facility] 2021-11-24 13:54:01 Outpatient Wendy Jones STLMLC STLMLC [id number] [facility] 2021-11-09 13:19:43 Outpatient Wendy Jones STLMLC STLMLC [id number] [facility] 2021-11-09 13:09:06 Outpatient Wendy Jones STMILAGROSLC STLMLC [id number] [facility] 2021-11-09 13:08:19 Outpatient Wendy Jones STLMLC STLMLC [id number] [facility] 2021-11-09 12:47:23 Outpatient Wendy Jones STLMLC STLMLC [id number] [facility] 2021-11-09 12:46:31 Outpatient Wendy Jones STLMLC STLMLC [id number] [facility] 2021-11-09 12:26:51 Outpatient JonesWendy rangel STLMLC STLMLC [id number] [facility] 2021-11-09 12:26:33 Outpatient Jones, Na STLMLC STLMLC [id number] [facility] 2021-11-09 12:08:49 Outpatient Jones, Na STLMLC STLMLC [id number] [id number] [facility] 2021-11-09 11:09:43 Outpatient Jones, Na STLMLC STLMLC [id number] [facility] 2021-11-09 11:09:27 Outpatient Jones, Na STLMLC STLMLC [id number] [facility] 2021-11-09 11:03:10 Outpatient Jones, Na STLMLC STLMLC [id number] [facility] 2021-08-13 01:21:40 Emergency [facility] [id number] [facility] 2024-10-26 00:16:00 2024-10-26 02:25:00 Emergency X Gladis GUNDERSON [facility] ERT [id number] [facility] 2024-10-26 00:16:00 2024-10-26 02:25:00 Emergency Gladis Gunderson [facility] [id number] [facility] 2022-10-04 00:00:00 2022-10-04 00:00:00 OFFICE VISIT EST PT LEVEL 3 STLMLC STLMLC [id number] [facility] 2022-10-03 00:00:00 2022-10-03 00:00:00 (TEL) STLMLC STLMLC [id number] [facility] 2022-07-24 00:00:00 2022-07-24 00:00:00 (TEL) STLMLC STLMLC [id number] [facility] 2022-07-12 00:00:00 2022-07-12 00:00:00 OFFICE VISIT ESTAB PT LEVEL 4 STLMLC STLMLC [id number] [facility] 2022-03-27 00:00:00 2022-03-27 00:00:00 (TEL) STLMLC STLMLC [id number] [facility] 2022-03-15 00:00:00 2022-03-15 00:00:00 OFFICE VISIT ESTAB PT LEVEL 4 STLMLC STLMLC [id number] [facility] 2021-12-14 00:00:00 2021-12-14 00:00:00 OFFICE VISIT ESTAB PT LEVEL 4 STLMLC STLMLC [id number] [facility] 2021-11-10 00:00:00 2021-11-10 00:00:00 (TEL) STLMLC STLMLC [id number] [facility] 2021-09-07 00:00:00 2021-09-07 00:00:00 (TEL) STLMLC STLMLC [id number] [facility] 2021-09-02 00:00:00 2021-09-02 00:00:00 (TEL) STLMLC STLMLC [id number] [facility] 2021-08-12 00:00:00 2021-08-12 00:00:00 (TEL) STLMLC STLMLC [id number] [facility] 2021-08-09 00:00:00 2021-08-09 00:00:00 OFFICE VISIT ESTAB PT LEVEL 4 STLMLC STLMLC [id number] [facility] 2021-06-03 00:00:00 2021-06-03 00:00:00 Outpatient STLMLC STLMLC [id number] [facility] 2021-05-04 00:00:00 2021-05-04 00:00:00 Outpatient STLMLC STLMLC [id number] [facility] 2021-04-22 00:00:00 2021-04-22 00:00:00 Outpatient STLMLC STLMLC [id number] [facility] 2021-03-15 00:00:00 2021-03-15 00:00:00 Outpatient STLMLC STLMLC [id number] [facility] 2021-03-15 00:00:00 2021-03-15 00:00:00 Outpatient STLMLC STLMLC [id number] [facility] 2021-01-24 00:00:00 2021-01-24 00:00:00 Outpatient STLMLC STLMLC [id number] [facility] 2021-01-23 00:00:00 2021-01-23 00:00:00 Outpatient STLMLC STLMLC [id number] [facility] 2021-01-14 00:00:00 2021-01-14 00:00:00 Outpatient STLMLC STLMLC [id number] [facility] 2021-01-13 00:00:00 2021-01-13 00:00:00 Outpatient STLMLC STLMLC [id number] [facility] 2020-11-22 00:00:00 2020-11-22 00:00:00 Outpatient STLMLC STLMLC [id number] [facility] 2020-11-22 00:00:00 2020-11-22 00:00:00 Outpatient STLMLC STLMLC [id number] [facility] 2020-11-22 00:00:00 2020-11-22 00:00:00 Outpatient STLMLC STLMLC [id number] [facility] 2020-11-15 00:00:00 2020-11-15 00:00:00 Outpatient STLMLC STLMLC [id number] [facility] 2020-09-14 00:00:00 2020-09-14 00:00:00 Outpatient STLMLC STLMLC [id number] [facility] 2020-08-23 00:00:00 2020-08-23 00:00:00 Outpatient STLMLC STLMLC [id number] [facility] 2020-08-13 13:00:00 2020-08-13 13:00:00 Outpatient DORI ANDERSON [facility] [id number] [facility] 2020-08-12 00:00:00 2020-08-12 00:00:00 Letter (Out) [facility] [id number] [facility] 2020-08-12 00:00:00 2020-08-12 00:00:00 Letter (Out) Deepika, [facility] [id number] 2020-08-12 00:00:00 2020-08-12 00:00:00 Telephone Lexi Daly [facility] [id number] [id number] 2020-08-10 13:49:00 2020-08-10 14:51:00 Emergency Gladis Gunderson [facility] [id number] [facility] 2020-08-10 13:49:00 2020-08-10 14:51:00 Emergency Gladis Gunderson [facility] [id number] 2020-07-15 00:00:00 2020-07-15 00:00:00 Outpatient STLMLC STLMLC [id number] [facility] 2020-06-15 16:20:00 2020-06-15 16:20:00 Outpatient [facility] Jeannineosporjill [facility] [id number] [facility] 2020-04-30 16:09:00 2020-04-30 16:09:[address] [facility] [id number] [facility] 2020-04-29 09:40:00 2020-04-29 09:40:[address] [facility] [id number] [facility] 2020-04-27 13:33:00 2020-04-27 13:33:[address] [facility] [id number] [facility] 2020-04-14 16:22:00 2020-04-14 16:22:[address] [facility] [id number] [facility] 2020-04-09 14:00:00 2020-04-09 14:00:00 [facility] [id number] [facility] 2020-03-22 09:00:00 2020-03-22 09:00:00 [facility] [id number] [facility] 2020-03-17 14:39:00 2020-03-17 14:39:00 [facility] [id number] [facility] 2020-01-06 13:00:00 2020-01-06 13:00:[address] [facility] [id number] [facility] 2019-12-08 13:20:00 2019-12-08 13:20:[address] [facility] [facility] [id number] [facility] 2019-11-07 14:00:00 2019-11-07 14:00:[address] [facility] [id number] [facility] 2019-10-06 14:00:00 2019-10-06 14:00:[address] [facility] [id number] [facility] 2019-09-09 08:54:00 2019-09-09 08:54:[address] [facility] [id number] [facility] 2019-09-08 16:01:00 2019-09-08 16:01:[address] [facility] [id number] [facility] 2019-09-01 13:00:00 2019-09-01 13:00:[address] [facility] [id number] [facility] 2019-08-11 10:31:00 2019-08-11 10:31:[address] [facility] [facility] [id number] [facility] 2019-08-08 10:40:00 2019-08-08 10:40:[address] [facility] [facility] [id number] [facility] 2019-07-17 09:40:00 2019-07-17 09:40:[address] [facility] [id number] [facility] 2019-07-04 11:00:00 2019-07-04 11:00:00 [facility] [id number] [facility] 2019-06-18 16:03:00 2019-06-18 16:03:[address] [facility] [facility] [id number] [facility] 2019-06-18 10:51:00 2019-06-18 10:51:00 [facility] [id number] [facility] 2019-05-27 16:53:00 2019-05-27 16:53:[address] [facility] [id number] [facility] 2019-05-27 08:00:00 2019-05-27 08:00:[address] [facility] [facility] [id number] [facility] 2019-04-24 14:00:00 2019-04-24 14:00:[address] [facility] [id number] [facility] 2019-02-18 08:01:00 2019-02-18 08:01:[address] [facility] [facility] [id number] [facility] 2019-02-14 08:19:00 2019-02-14 08:19:[address] [facility] [facility] [id number] [facility] 2019-02-11 16:00:00 2019-02-11 16:00:00 [facility] [id number] [facility] 2019-01-17 10:42:00 2019-01-17 10:42:00 [facility] [id number] [facility] 2019-01-17 10:00:00 2019-01-17 10:00:00 [facility] [id number] [facility] 2018-12-19 14:00:00 2018-12-19 14:00:00 [facility] [id number] [facility] 2018-12-03 15:30:00 2018-12-03 15:30:[address] [facility] [facility] [id number] [facility] 2018-11-21 14:30:00 2018-11-21 14:30:[address] [facility] [id number] [facility] 2018-11-11 08:33:00 2018-11-11 08:33:[address] [facility] [facility] [id number] [facility] 2018-10-21 11:00:00 2018-10-21 11:00:00 [facility] [id number] [facility] 2018-09-16 14:30:00 2018-09-16 14:30:[address] [facility] [id number] [facility] 2018-07-05 11:30:00 2018-07-05 11:30:00 [facility] [id number] [facility] 2018-06-28 09:57:00 2018-06-28 09:57:[address] [facility] [id number] [facility] 2018-06-17 16:56:00 2018-06-17 16:56:[address] [facility] [facility] [id number] [facility] 2018-06-13 14:30:00 2018-06-13 14:30:00 [facility] [id number] [facility] 2018-06-06 15:00:00 2018-06-06 15:00:00 [facility] [id number] [facility] 2018-05-22 12:55:00 2018-05-22 12:55:[address] [facility] [facility] [id number] [facility] 2018-05-13 15:00:00 2018-05-13 15:00:00 [facility] [id number] [facility] 2018-05-07 10:32:00 2018-05-07 10:32:00 [facility] [id number] [facility] 2018-04-12 10:15:00 2018-04-12 10:15:00 [facility] [id number] [facility] 2018-03-12 14:15:00 2018-03-12 14:15:00 Outpatient [facility] [id number] [facility] 2018-02-13 15:15:00 2018-02-13 15:15:00 Outpatient [facility] [id number] [facility] 2018-02-11 14:00:00 2018-02-11 14:00:[address] [facility] [id number] [facility] Results Test Description Test Time Test Comments Results Result Co mments Source [facility]2024-10-26 06:18:39* Test Item Value Reference Range Interpretation Comme nts POCT GLU (test code = 0197271325) 231 mg/dL 70-110 H Lab Interpretation (test cod e = [id number]) Abnormal [facility],[id number] 14:09:00 RUN DATE: 07/16/18 [facility] PAGE 1 RUN TIME: 1846 Specimen Inquiry RUN USER: INTERFACE --------- ---PATIENT: CHERYL BAEZ LOC: [facility] U #: [id number] AGE/SX: 53/F ROOM: RE07/15/18REG DR: Erik Severino MD : 61 BED: DIS: STATUS: [facility] TLOC: SPEC #: [id number] RECD: 07/15/18 STATUS: NATHEN RETatum #: [id number] GORGE: 07/15/[address]: Erik Seveirno MD ENTERED: 07/15/18 SP TYPE: VAGBX OTHR DR: ORDERED: LEVEL IV CODES: [id number] - VAGINA, NOS PROCEDURES: LEVEL IV (Incomplete) [...] microabscesses identified Tissue code 1 CPT code(s): 11089 dewayne/siva 07/16/18 @ 3330 GROSS DESCRIPTION The specimen is received in a formalin-filled container, labeled with the patient's name and designated "vaginal mesh". The specimen consists of an irregular 2 x 1.6 x 0.2 cm portion of nieto fabric mesh, teal suture and adhesed red tissue. It is submitt ed in toto in one cassette. mundo/siva 07/15/18 @ 2489 MICROSCOPIC DESCRIPTION The specimen consists of multiple fragments of fibroconnective tissue containing polarizable foreign material associated with a foreign body giant cell reaction. A chronic inflammatory cell infiltrate is present composed of mostly small lymphocytes and plasma cells. dewayne/siva 07/16/18 @ 5942 Signed Deanna Haines 07/16/18 1409 END OF REPORT Notes Date/Time Note Provider Source 2024-10-26 02:23:52 Pt given printed and verbal discharge instructions regarding acute cystitis with hematuria, hypertension, and hyperglycemia, encouraged hydration, Prescriptions provided to preferred pharmacy Discussed antibiotic therapy and to take until all completed unless adverse reaction occurs - if occurs, discontinue medication and follow up with pcp/seek medical attention Pt verbalized understanding of instructions, pt awake alert oriented, resp reg unlabored, skin w/d, color appropriate for race, moves all ext well,pt encouraged to follow up with pcp Advised to seek medical attention for new/prolonged/worsening of symptoms No adverse reaction to meds given in ER noted upon discharge PIV d'cd, dressing to site, catheter in tact. Awake, alert oriented, resp reg unlabored, skin w/d, pt leaving amb with steady gait, in no apparent distress, ALUISA Martini RN [facility] 2024-10-26 00:34:52 ERP at bedside. RAL [employer]TE[employer]CE ME[employer]IC [facility] 2024-10-26 00:07:04 Pt arrived ambulatory without assist. Pt c/o high blood glucose, BG 249 at home. Pt take metformin BID, Rybelsus 3mg PO once a day. PMHx: HTN (takes medication), HLD, Hypothyroidism, Anxiety ALUISA Yuan RN [facility]
[2025-05-29] MEDS ORDERED: NA CHLORIDE 0.9% 500 ML ONE (16:37)
[2025-05-29 16:43] LABS: Absolute Lymphocytes (CBC) 1.5 K/uL (0.7-4.9); Hematocrit 40.1 % (36.0-45.0); Hemoglobin 13.3 g/dL (12.0-15.0); MCH 26.6 pg (27.0-35.0); MCHC 33.3 g/dL (32.0-36.0); MCV 79.8 fL (80-100); MPV 8.2 fL (7.6-11.3); Nucleated RBC Absolute Count 0.0 (0-0); Nucleated Red Blood Cells % 0.1 % (0-0); RBC Red Blood Cell Count 5.02 M/uL (3.86-4.86); White Blood Count 7.90 thou/uL (4.3-10.9)
[2025-05-29 16:52] LABS: Sqamous Epithelial <5 /HPF (None Seen); Urine Crystals Unidentified Few /HPF (None Seen); Urine Culture Reflex Order REFLEXED; Urine Microscopic Reflex YN ORDER UMIC; Urine WBC Clump Rare /HPF (None Seen); Urine Yeast (Budding) Trace /HPF (None Seen)
[2025-05-29 17:00] LABS: ALT/SGPT 25.0 U/L (13-56); AST/SGOT 17.0 U/L (15-37); Albumin 4.0 g/dL (3.4-5.0); Albumin/Globulin Ratio 1.0 (1.1-1.8); Alkaline Phosphatase 98.0 U/L (45-117); Anion Gap 14.8 mEq/L (5.0-15.0); BUN Blood Urea Nitrogen 16.0 mg/dL (7-18); Globulin 3.9 g/dL (2.3-3.5); Glucose Level 106.0 mg/dL (74-106); Potassium 3.8 mEq/L (3.5-5.1)
[2025-05-29] MEDS ORDERED: AZITHROMYCIN 250 MG TAB ONE (17:00)
[2025-05-29 17:01] LABS: Influenza A Ag Negative; Influenza B Ag Negative
[2025-05-29 17:02] LABS: SARS-CoV-2 Antigen Rapid Res Positive (Negative)
--- NOTE | 2025-05-29 17:04 | ER ---
Nurse's Notes [facility] Name: Cheryl Barney Age: 60 yrs Sex: Female : 1965 Arrival Date: 05/29/2025 Time: 15:56 Bed 17 Private MD: Diagnosis: Acute upper respiratory infection, unspecified;Cough;SARS-associated coronavirus as the cause of diseases classified elsewhere;UTI/ Urinary tract infection, site not specified Presentation: 05/29 16:04 Chief complaint: Patient states: LINARES, both ears hurt, slight cough, N/V started ll1 yesterday morning. Coronavirus screen: Client denies travel out of the [place] in the last 14 days. Ebola Screen: Patient denies travel to an Ebola-affected area in the 21 days before illness onset. Initial Sepsis Screen: Does the patient meet any 2 criteria? No. Patient's initial sepsis screen is negative. Does the patient have a suspected source of infection? No. Patient's initial sepsis screen is negative. Risk Assessment: Do you want to hurt yourself or someone else? Patient reports no desire to harm self or others. Onset of symptoms was May 28, 2025. 16:04 Method Of Arrival: Ambulatory ll1 16:04 Acuity: SILVER 3 ll1 Historical: - Allergies: 16:03 paper tape; ll1 16:03 Tramadol HCl; ll1 - PMHx: 16:03 Hypertensive disorder; Diabetes mellitus; Hypercholesterolemia; Hypothyroidism; ll1 - PSHx: 16:03 None; ll1 - Immunization history:: Adult Immunizations up to date. - Infectious Disease History:: Denies. - Social history:: Smoking status: Patient denies any tobacco usage or history of. - Family history:: not pertinent. Screenin:10 [facility] ED Fall Risk Assessment (Adult) History of falling in the last 3 months, me1 including since admission No falls in past 3 months (0 pts) Confusion or Disorientation No (0 pts) Intoxicated or Sedated No (0 pts) Impaired Gait No (0 pts) Mobility Assist Device Used No (0 pt) Altered Elimination No (0 pt) Score/Fall Risk Level 0 - 2 = Low Risk Maintained a safe environment, Provided non-skid footwear, Hourly rounding (assess needs \T\ fall precautionary measures) done. Abuse screen: Denies threats or abuse. Nutritional screening: No deficits noted. Tuberculosis screening: No symptoms or risk factors identified. Assessment: 16:10 General: Appears ill, well groomed, well developed, well nourished, Behavior is calm, me1 cooperative, appropriate for age, Reports LINARES, both ears hurt, slight cough, N/V started yesterday morning. Pain: Complains of pain in head, right ear and left ear Pain does not radiate. Pain currently is 9 out of 10 on a pain scale. Quality of pain is described as aching, Pain began 1 day ago. Is continuous. Neuro: Level of Consciousness is awake, alert, obeys commands, Oriented to person, place, time, situation, Appropriate for age Reports headache. Cardiovascular: Patient's skin is warm and dry. Respiratory: Reports cough that is Airway is patent Respiratory effort is even, unlabored, Respiratory pattern is regular, symmetrical. GI: Reports nausea, vomiting, since yesterday. : No signs and/or symptoms were reported regarding the genitourinary system. EENT: Reports pain in left ear and right ear. Derm: Skin is intact, is healthy with good turgor, Skin is pink, warm \T\ dry. Musculoskeletal: No signs and/or symptoms reported regarding the musculoskeletal system. Circulation, motion, and sensation intact. Range of motion: intact in all extremities. Vital Signs: 16:04 BP 127 / 83; Pulse 98; Resp 17; Temp 98.9; Pulse Ox 98% ; Weight 73.03 kg; Height 5 ft. ll1 6 in. ; Pain 9/10; 17:00 BP 115 / 79; Pulse 91; Resp 16; Pulse Ox 99% ; me1 17:16 BP 123 / 84; Pulse 87; Resp 17; Pulse Ox 100% ; me1 17:45 BP 123 / 88; Pulse 94; Resp 16; Pulse Ox 100% ; me1 16:04 Body Mass Index 25.99 (73.03 kg, 167.64 cm) ll1 16:04 Pain Scale: Adult ll1 ED Course: 15:58 Patient arrived in ED. im 16:00 Trevor Sanz MD is Attending Physician. [facility] 16:03 Arm band placed on. ll1 16:05 Triage completed. ll1 16:10 Patient has correct armband on for positive identification. Bed in low position. Call me1 light in reach. Side rails up X 1. Provided Education on: POC. Verbalized understanding.. Client placed on continuous cardiac and pulse oximetry monitoring. NIBP monitoring applied. Pulse ox on. NIBP on. 16:10 No provider procedures requiring assistance completed. me1 16:14 Gabby Obando, RN is Primary Nurse. me1 16:35 COVID-19 Ag + Flu A+B Ag Sent. me1 16:35 CMP Sent. me1 16:35 CBC with Diff Sent. me1 16:35 UA Rfx Bran Cult if indicated Sent. me1 16:35 Initial lab(s) drawn, by wa, sent to lab. Urine collected: clean catch specimen, me1 cloudy, cynthia colored, COVID swab sent to lab. Flu and/or RSV swab sent to lab. Inserted saline lock: 22 gauge in right antecubital area, using aseptic technique. 17:06 Chest Pa And Lat (2 Views) XRAY In Process Unspecified. EDMS 17:50 IV discontinued, intact, bleeding controlled, No redness/swelling at site. Pressure me1 dressing applied. Administered Medications: 16:38 Drug: NS 0.9% IV 500 ml 500 ml IV at 1 bolus once; to be given as a bolus over 30 me1 minutes Volume: 500 ml; Route: IV; Rate: 1 bolus; Site: right antecubital; 17:15 Follow up: Response: No adverse reaction; IV Status: Completed infusion; IV Intake: me1 500ml 17:01 Not Given (Duplicate Order): [id number] mg PO once marah 17:15 Drug: LevOfloxacin PO 750 mg PO once Route: PO; me1 17:20 Follow up: Response: No adverse reaction me1 17:15 Drug: Aspirin PO Chewable Tablet 81 mg PO once Route: PO; me1 17:20 Follow up: Response: No adverse reaction me1 17:15 Drug: Famotidine PO 40 mg PO once Route: PO; me1 17:20 Follow up: Response: No adverse reaction me1 Medication: 16:10 VIS not applicable for this client. me1 Intake: 17:15 IV: 500ml; Total: 500ml. me1 Outcome: 17:03 Discharge ordered by . [facility] 17:50 Discharged to home ambulatory, with family, me1 17:50 Condition: stable 17:50 Discharge instructions given to patient, family, Instructed on discharge instructions, follow up and referral plans. medication usage, Demonstrated understanding of instructions, follow-up care, medications, Prescriptions given X 4, 17:51 Patient left the ED. me1 Signatures: Dispatcher [employer] Trevor Goetz MD MD cha Lewis, Lynsay, RN RN 1 Caron Arzola Michelle, RN RN me1 Corrections: (The following items were deleted from the chart) 16:20 16:04 Chief complaint: Patient states: LINARES, both ears hurt, slight cough, N/V started me1 yesterday morning. ll1 16:49 16:04 Chief complaint: Patient states: LINARES, both ears hurt, slight cough, N/V started me1 yesterday morning. me1 17:17 16:04 Chief complaint: Patient states: LINARES, both ears hurt, slight cough, N/V started me1 yesterday morning. me1
--- NOTE | 2025-05-29 17:04 | EDPHYS ---
Physician Documentation [facility] Name: Cheryl Barney Age: 60 yrs Sex: Female : 1965 Arrival Date: 05/29/2025 Time: 15:56 Bed 17 Private MD: ED Physician Trevor Sanz HPI: 05/29 16:50 This 60 yrs old Female presents to ER via Ambulatory with complaints of Flu marah Symptoms. 16:50 The patient or guardian reports cough. Modifying factors: The symptoms are alleviated marah by nothing. the symptoms are aggravated by nothing. uri. Associated signs and symptoms: Pertinent positives: rhinorrhea, sore throat. Onset: The symptoms/episode began/occurred 2 day(s) ago. The patient reports fever, not measured (subjective). Severity of symptoms: At their worst the symptoms were moderate in the emergency department the symptoms have improved. Historical: - Allergies: 16:03 paper tape; ll1 16:03 Tramadol HCl; ll1 - PMHx: 16:03 Hypertensive disorder; Diabetes mellitus; Hypercholesterolemia; Hypothyroidism; ll1 - PSHx: 16:03 None; ll1 - Immunization history:: Adult Immunizations up to date. - Infectious Disease History:: Denies. - Social history:: Smoking status: Patient denies any tobacco usage or history of. - Family history:: not pertinent. ROS: 16:50 Constitutional: Negative for fever, chills, and weight loss, Eyes: Negative for injury, marah pain, redness, and discharge, ENT: Negative for injury, pain, and discharge, Neck: Negative for injury, pain, and swelling, Cardiovascular: Negative for chest pain, palpitations, and edema, Abdomen/GI: Negative for abdominal pain, nausea, vomiting, diarrhea, and constipation, Back: Negative for injury and pain, : Negative for injury, bleeding, discharge, and swelling, MS/Extremity: Negative for injury and deformity, Skin: Negative for injury, rash, and discoloration, Neuro: Negative for headache, weakness, numbness, tingling, and seizure, Psych: Negative for depression, anxiety, suicide ideation, homicidal ideation, and hallucinations, Allergy/Immunology: Negative for hives, rash, and allergies, Endocrine: Negative for neck swelling, polydipsia, polyuria, polyphagia, and marked weight changes, Hematologic/Lymphatic: Negative for swollen nodes, abnormal bleeding, and unusual bruising, 16:50 Respiratory: Positive for cough, with no reported sputum, Exam: 16:50 Constitutional: This is a well developed, well nourished patient who is awake, alert, marah and in no acute distress. Head/Face: Normocephalic, atraumatic. Eyes: Pupils equal round and reactive to light, extra-ocular motions intact. Lids and lashes normal. Conjunctiva and sclera are non-icteric and not injected. Cornea within normal limits. Periorbital areas with no swelling, redness, or edema. ENT: Nares patent. No nasal discharge, no septal abnormalities noted. Tympanic membranes are normal and external auditory canals are clear. Oropharynx with no redness, swelling, or masses, exudates, or evidence of obstruction, uvula midline. Mucous membranes moist. Neck: Trachea midline, no thyromegaly or masses palpated, and no cervical lymphadenopathy. Supple, full range of motion without nuchal rigidity, or vertebral point tenderness. No Meningismus. Chest/axilla: Normal chest wall appearance and motion. Nontender with no deformity. No lesions are appreciated. Cardiovascular: Regular rate and rhythm with a normal S1 and S2. No gallops, murmurs, or rubs. Normal PMI, no JVD. No pulse deficits. Respiratory: Lungs have equal breath sounds bilaterally, clear to auscultation and percussion. No rales, rhonchi or wheezes noted. No increased work of breathing, no retractions or nasal flaring. Abdomen/GI: Soft, non-tender, with normal bowel sounds. No distension or tympany. No guarding or rebound. No evidence of tenderness throughout. Back: No spinal tenderness. No costovertebral tenderness. Full range of motion. Female : Normal external genitalia. Skin: Warm, dry with normal turgor. Normal color with no rashes, no lesions, and no evidence of cellulitis. MS/ Extremity: Pulses equal, no cyanosis. Neurovascular intact. Full, normal range of motion., bilateral aka Neuro: Awake and alert, GCS 15, oriented to person, place, time, and situation. Cranial nerves II-XII grossly intact. Motor strength 5/5 in all extremities. Sensory grossly intact. Cerebellar exam normal. Normal gait. Psych: Awake, alert, with orientation to person, place and time. Behavior, mood, and affect are within normal limits. 16:50 Musculoskeletal/extremity: DVT Exam: No signs of deep vein thrombosis. no pain, no swelling, no tenderness, negative Homans' sign noted on exam, no appreciated bluish discoloration, no erythema, no increased warmth, 16:50 Neuro: Orientation: is normal, appropriate for stated age, no acute changes, Mentation: is normal, appropriate for stated age, no acute changes, Memory: is normal, appropriate for stated age, no acute changes, Cranial nerves: grossly normal, is grossly normal based on the patient's age, no acute changes, Cerebellar function: is grossly normal, is grossly normal based on the patient's age, no acute changes, Gait: not applicable seizure activity, is not displayed by the patient, Vital Signs: 16:04 BP 127 / 83; Pulse 98; Resp 17; Temp 98.9; Pulse Ox 98% ; Weight 73.03 kg; Height 5 ft. ll1 6 in. ; Pain 9/10; 17:00 BP 115 / 79; Pulse 91; Resp 16; Pulse Ox 99% ; me1 17:16 BP 123 / 84; Pulse 87; Resp 17; Pulse Ox 100% ; me1 17:45 BP 123 / 88; Pulse 94; Resp 16; Pulse Ox 100% ; me1 16:04 Body Mass Index 25.99 (73.03 kg, 167.64 cm) ll1 16:04 Pain Scale: Adult ll1 MDM: 16:00 Medical Screening Exam initiated marah 16:57 Differential diagnosis: obstructed airway, tracheal injury, bronchitis, flu, URI, viral marah Infection, bacterial infection. Antibiotic administration: Not indicated, the patient is already taking antibiotics, The patient is discharged and will get outpatient antibiotics, Zithromax. Differential Diagnosis sepsis, flu. Data reviewed: vital signs, nurses notes. Consideration of Admission/Observation Escalation of care including admission/observation considered. I considered the following discharge prescriptions or medication management in the emergency department Medications were administered in the Emergency Department. See MAR. Test considered but Not performed: X-ray: cxr. Historians other than the Patient: Family Member: family well informed. 05/29 16: Order name: CBC with Diff; Complete Time: 16:49 [facility] 05/29 16: Order name: CMP; Complete Time: 17:00 [facility] 08/15 16:01 Order name: UA Rfx Bran Cult if indicated; Complete Time: 17:00 [facility] 05/29 16:01 Order name: COVID-19 Ag + Flu A+B Ag; Complete Time: 17:06 [facility] 05/29 16:57 Order name: Urine Culture EDMS 05/29 16:01 Order name: Chest Pa And Lat (2 Views) XRAY marah Administered Medications: 16:38 Drug: NS 0.9% IV 500 ml 500 ml IV at 1 bolus once; to be given as a bolus over 30 me1 minutes Volume: 500 ml; Route: IV; Rate: 1 bolus; Site: right antecubital; 17:15 Follow up: Response: No adverse reaction; IV Status: Completed infusion; IV Intake: me1 500ml 17:01 Not Given (Duplicate Order): [id number] mg PO once marah 17:15 Drug: LevOfloxacin PO 750 mg PO once Route: PO; me1 17:20 Follow up: Response: No adverse reaction me1 17:15 Drug: Aspirin PO Chewable Tablet 81 mg PO once Route: PO; me1 17:20 Follow up: Response: No adverse reaction me1 17:15 Drug: Famotidine PO 40 mg PO once Route: PO; me1 17:20 Follow up: Response: No adverse reaction me1 Disposition Summary: 05/29/25 17:03 Discharge Ordered Notes: Location: Home marah Problem: new marah Symptoms: have improved marah Condition: Stable marah Diagnosis - Acute upper respiratory infection, unspecified marah - Cough marah - SARS-associated coronavirus as the cause of diseases classified elsewhere marah - UTI/ Urinary tract infection, site not specified marah Followup: marah - With: Private Physician - When: 2 - 3 days - Reason: Recheck today's complaints, Continuance of care, Re-evaluation by your physician Discharge Instructions: - Discharge Summary Sheet marah - Upper Respiratory Infection, Adult marah - Urinary Tract Infection, Adult marah - Cool Mist Vaporizer marah - Urinary Tract Infection, Adult, [id number] marah - Upper Respiratory Infection, Adult, [id number] marah - Cough, Adult, [id number] marah - Aspirin and Your Heart marah - Cough, Adult marah - COVID-19 marah - 10 Things You Can Do to Manage Your COVID-19 Symptoms at Home - [facility] (04/29/2021) marah - Symptoms of COVID-19 - CDC (01/03/2022) marah Forms: - Medication Reconciliation Form marah - Antibiotic Education marah - Prescription Opioid Use marah - Patient Portal Instructions marah - Leadership Thank You Letter [facility] Prescriptions: - Paxlovid 300 mg (150 mg x 2)-100 mg Oral Tablet, Dose Pack - take 1 dose pack ORAL route as directed on dose pack take TWO 150 mg tablets of marah nirmatrelvir with ONE 100 mg tablet of ritonavir twice daily for 5 days; 30 tablet; Refills: 0, Product Selection Permitted - Pepcid 20 mg Oral tablet - take 1 tablet ORAL route every 12 hours for 21 days; 42 tablet; Refills: 0, [facility] Product Selection Permitted - Tessalon Perles 100 mg Oral capsule - take 2 capsule ORAL route every 8 hours As needed; 30 capsule; Refills: 0, [facility] Product Selection Permitted - levofloxacin 500 mg Oral tablet - take 1 tablet ORAL route once daily for 7 days; 6 tablet; Refills: 0, Product [facility] Selection Permitted Signatures: Dispatcher [employer] Trevor Goetz MD MD cha Lewis, Lynsay, RN RN ll1 Gabby Obando RN RN me1
[2025-05-29] MEDS ORDERED: ASPIRIN 81 MG CHEWABLE TABLET ONE (17:11)
[2025-05-29] MEDS ORDERED: FAMOTIDINE 20 MG TAB ONE (17:12)
--- NOTE | 2025-05-29 17:36 | RAD REPORT ---
Procedure: Chest Pa And Lat (2 Views) HISTORY: Cough COMPARISON: 2018 FINDINGS: The lungs appear clear of acute infiltrate. No significant pleural effusion noted. The heart is normal size. IMPRESSION: No acute abnormality is displayed.
[2025-05-29 21:12] VITALS: TEMP 98.9
[2025-05-29 21:25] VITALS: O2SAT 100
[2025-05-29 21:27] VITALS: BP 123/88
== END 2025-05-29 17:51 | disposition home or self-care (01) ==
LOC: ER 15:56
DX: U07.1 COVID-19 (principal); N39.0 Urinary tract infection, site not specified
CPT/HCPCS: 87088; 85025; 81001; 87086; 36415; 80053; 71046; 96360; 99284; 87428; J7040